=== PATIENT | male | born 1950 | race Caucasian/White ===

== ENCOUNTER 2024-03-20 10:01 | Inpatient (IN) | payer MEDICARE, SELFPAY ==
[2024-03-20] VITALS (46 sets, daily range): BP systolic 115–187; BP diastolic 48–76; PULSE 70–105; RESP 13–28; TEMP 36.9–38.1; O2SAT 69–100
--- NOTE | 2024-03-20 11:28 | XR_ITS ---
Examination: AP chest single view Technique one AP portable upright chest single view Exam date and time: March 20, 2024 at 12:36 PM Comparison June 05, 2023 Indications: Shortness of breath chest pain today Findings: CABG Mild to moderate CHF Moderate enlargement cardiac contour Prominent vascular congestion including central vascular engorgement Perihilar basilar edema Prominent osteopenia Impression: Mild to moderate CHF
--- NOTE | 2024-03-20 11:30 | PD.EDSOB ---
ED SOB =RME/HPI General Chief Complaint: Weakness Stated Complaint: WEAKNESS Time Seen by Provider: 03/20/24 11:10 Arrival date/time: 03/20/24 10:01 This is a 73-year-old male that comes to the emergency room with complaints of shortness of breath, generalized weakness, and back pain. Patient currently lives at [facility]. Patient has a history of A-fib with RVR , open heart surgery, morbid obesity, hyperlipidemia, CAD status post stents, history of DVT, depression. Patient arrives to the emergency room with low-grade temp Related Data Home Medications ?Medication ?Instructions ?Recorded ?Confirmed venlafaxine 75 mg capsule,extended 75 mg PO QDAY 05/16/17 03/21/24 release 24 hr (Effexor XR) apixaban 2.5 mg tablet (Eliquis) 2.5 mg PO BID 09/17/19 03/21/24 hydrocodone 5 mg-acetaminophen 325 1 tab PO Q6H PRN Pain, Moderate 09/17/19 03/21/24 mg tablet furosemide 40 mg tablet 40 mg PO QDAY 07/29/22 03/21/24 gabapentin 300 mg capsule 300 mg PO TID 07/29/22 03/21/24 pravastatin 40 mg tablet 40 mg PO QDAY 07/29/22 03/21/24 Allergies Allergy/AdvReac Type Severity Reaction Status Date / Time bee venom protein (honey bee) Allergy Swelling Verified 03/29/23 16:38 of Lip/Tongue/Throat Review of Systems Review of Systems Systems Reviewed: All systems reviewed, normal except as documented Past Medical History Past Medical History NEUROLOGIC: Negative Neurological Disorders or Seizures CARDIAC: Positive Cardiac Disorders, Myocardial Infarction, Atrial Fibrillation, Angina, Atherosclerotic Heart Disease, Hypercholesterolemia, Aneurysm, Edema, Deep Vein Thrombosis and Hypertension; Negative Congestive Heart Failure RESPIRATORY: Negative Chronic Obstructive Pulmonary Disease (COPD) or Asthma GASTROINTESTINAL: Negative Gastrointestinal Disorders GENITOURINARY: Positive Genitourinary Disorders and Kidney Stones; Negative Renal Disease MUSCULOSKELETAL: Positive Musculoskeletal Disorders and Arthritis ENT: Positive Blind ENDOCRINE: Negative Endocrine Disorders, Diabetes Mellitus Type 1 or Diabetes Mellitus Type 2 HEMATOLOGIC: Negative Blood Disorders or Sickle Cell Disease PSYCHO/SOCIAL: Positive Depression and Anxiety OTHER HISTORY: Positive Hospitalization, Falls and Measles; Negative Shingles, Blood Transfusions, Anesthesia Reactions, Chemotherapy, Radiation Therapy, MRSA, Clostridium Difficile or Cancer Family History FAMILY HISTORY: Positive Family Cardiac Disorders Surgical History SURGICAL: Positive Cardiac Surgery, Coronary Artery Bypass Graft, Coronary Stent, Angiogram and Tonsillectomy Social History SMOKING STATUS: Never smoker SUBSTANCE USE: former substance user ED Exam General General appearance: Present alert and other (mild distress ) Head Head exam: Present atraumatic Eye Eye exam: Present normal appearance, PERRL and EOMI ENT ENT exam: Present normal exam, normal oropharynx and mucous membranes moist Neck Neck exam: Present normal inspection, full ROM and trachea midline Chest Chest inspection: Present normal inspection and symmetric chest wall rise Respiratory Respiratory exam: Present other (wheezing throughout ) Cardiovascular Cardiovascular exam: Present regular rate, normal rhythm and normal heart sounds Abdominal Exam Abdominal exam: Present soft Extremities Exam Extremities exam: Present other (pitting edema lower extremities ) Back Exam Back exam: Present normal inspection and full ROM Neurological Exam Neurological exam: Present alert, oriented X3 and other (gen weakness upper and lower extremities ) Psychiatric Psychiatric exam: Present normal affect and normal mood Skin Skin exam: Present warm, dry, intact and normal color Course Quality Measures none Orders Category Date Time Status Bedside COVID-19 Antigen Test NOW Care 03/20/24 11:28 Completed Bedside Influenza A&B Antigen Test NOW Care 03/20/24 11:29 Completed COVID-19 Screening Questionnaire NOW Care 03/20/24 16:32 Completed Decision to Admit X1 Care 03/20/24 16:32 Completed EKG (ED ONLY) *Do not use* NOW Care 03/20/24 11:29 Completed IV [Insert IV] STAT Care 03/20/24 12:08 Completed In and Out Catheter X1 Care 03/20/24 11:[address] abdomen pelvis wo con Stat Exams 03/20/24 13:30 Completed EKG (ED Only) Stat Exams 03/20/24 11:28 Ordered XR chest 1V Stat Exams 03/20/24 11:28 Completed BNP [B-Type Natriuretic Peptide] Stat Lab 03/20/24 11:47 Completed Blood Culture (Lab) Stat Lab 03/20/24 11:40 Results CBC Stat Lab 03/20/24 11:47 Completed Comprehensive Metabolic Panel Stat Lab 03/20/24 11:47 Completed Lactate (Lactic Acid) Stat Lab 03/20/24 11:47 Completed Lactic Acid, 3 HR Stat Lab 03/20/24 15:34 Completed Procalcitonin Stat Lab 03/20/24 11:47 Completed Troponin I Stat Lab 03/20/24 11:47 Completed Urinalysis, C/S if Indicated Stat Lab 03/20/24 12:29 Completed Urine Culture Stat Lab 03/20/24 12:29 Received Acetaminophen Tab [Tylenol ES Tab] Med 03/20/24 11:30 Discontinued 1,000 mg PO X1 ONE Albuterol/Ipratr Rt Jeanie [Duoneb Rt Jeanie] Med 03/20/24 11:28 Discontinued 3 ml INH X1 ONE Oseltamivir [Tamiflu] Med 03/20/24 12:08 Discontinued 75 mg PO X1 ONE Sodium Chloride 0.9% 1000 ml [Ns] 1,000 ml Med 03/20/24 12:08 Discontinued IV 999 mls/hr cefTRIAXone/D5w 1gm IV premix [Rocephin/D5w 1gm IV Med 03/20/24 13:33 Discontinued premix] 50 ml IV X1 Vital Signs Vital signs: Vital Signs Temperature 100.6 F H 03/20/24 10:07 Pulse Rate 90 03/20/24 10:07 Respiratory Rate 23 H 03/20/24 10:07 Blood Pressure 187/71 H 03/20/24 10:07 Pulse Oximetry (%) 93 L 03/20/24 10:07 Oxygen Delivery Method Nasal Cannula 03/20/24 10:07 Oxygen Flow Rate 3 03/20/24 10:07 Procedures -ED EKG Interpretation #1: Date of EK03/20/24 Time of EK:09 Rate: 86 Interpretation: Interpreted by me (Atrial fibrillation with left posterior fascicular block) EKG Impression: Atrial fibrillation Shortness of Breath / Dyspnea MDM Narrative MDM Narrative:: Chest x ray shows: Findings: CABG Mild to moderate CHF Moderate enlargement cardiac contour Prominent vascular congestion including central vascular engorgement Perihilar basilar edema Prominent osteopenia Impression: Mild to moderate CHF ct abdomen and pelvis: Findings: Pneumonia left base with small left pleural effusion Prominent vascular congestion Moderate enlargement cardiac contour No focal liver or splenic lesions No gallstones Atrophic pancreas No adrenal mass Atrophic kidneys with renal cortical thinning and moderate renal parenchymal scar formation Large staghorn calculus, at least 6 cm, right kidney extending into the renal pelvis without hydronephrosis Multiple left renal calculi, the largest in the lower pole 15 mm Infrarenal abdominal aortic aneurysm, AP dimension 6.3 cm mediolateral dimension 5.9 cm cephalad caudad dimension 7.8 cm No bowel obstruction No pericecal inflammatory change No diverticulitis No bladder calculi Normal seminal vesicles No prostatomegaly Prominent osteopenia Moderate to advanced narrowing hip joints Impression: Pneumonia left base with small left pleural effusion Atrophic kidneys with renal cortical thinning and moderate bilateral renal parenchymal scar formation Extensive bilateral renal calculi including large staghorn calculus right kidney involving calyces and right renal pelvis No significant hydronephrosis Infrarenal abdominal aortic aneurysm transverse measurement 6.3 x 5.9 cm compared to 6.2 x 5.[address] abdomen study June 05, 2023 Patient was positive for influenza A. Upon arrival patient was wheezing so I gave him a breathing treatment of albuterol and Atrovent. Patient does report history of smoking in the past but has not smoked in many years. Patient's labs show white count of 9.7, hemoglobin of 11.1 hematocrit of 35.7, BMP shows a creatinine of 1.6 and a BUN of 31, lactic acid shows 2.6, troponin is 0.033 BNP is 91, procalcitonin 0.23 Chest x-ray shows left lower lobe infiltrate. Patient was given Rocephin for pneumonia. Upon initial arrival was given Tylenol for the fever. Patient was on oxygen and given breathing treatment. Wheezing did improve with breathing treatment. Influenza came back positive for influenza A and was given Tamiflu. Because of history of CHF and edema to the lower extremities 1 L of fluid was given IV bolus for sepsis alert. Hospitalist team called to admit patient to the hospital. Patient data External records reviewed:: [facility] previous records Clinical information provided by:: patient Social determinants that could affect healthcare access:: none Patient has the following chronic illnesses:: The chart How is presenting disease/condition affected by chronic disease/condition?: exacerbated by Evaluation data The following diagnostics were reviewed and interpreted by me:: lab results, radiology exam(s) and EKG tracing(s) Lab and/or radiology exams considered but not ordered:: None Interpretation Summary: See note Medications / Prescriptions Medications or Prescriptions considered but not ordered:: None Medication administrations:: Medication Administration History Acetaminophen (Acetaminophen 325 Mg Tablet) 650 mg PO Q6H PRN PRN Reason: Fever >101.5 Stop: 04/19/24 17:07 Acetaminophen (Acetaminophen 325 Mg Tablet) 650 mg PO Q6H PRN PRN Reason: PAIN SCALE 1-3 (mild Stop: 04/19/24 17:07 Hydrocodone Bitart/Acetaminophen (Hydrocodone/Apap 5/325 Tablet) 1 tab PO Q6HR PRN PRN Reason: Pain 4-10 Stop: 03/25/24 17:21 Last Admin: 03/21/24 21:44 Dose: 1 tab Documented By: Admin: 03/21/24 05:19 Dose: 1 tab Documented By: Admin: 03/20/24 20:44 Dose: 1 tab Documented By: ISATU Albuterol/Ipratropium (Albuterol/Ipratropium (Duoneb) Rt Jeanie 3 Ml Nebu) 3 ml INH Q6H ADRIAN Stop: 04/19/24 17:29 Last Admin: 03/22/24 00:26 Dose: 3 ml Documented By: Admin: 03/21/24 19:00 Dose: 3 ml Documented By: Admin: 03/21/24 11:58 Dose: 3 ml Documented By: Admin: 03/21/24 05:57 Dose: 3 ml Documented By: Admin: 03/21/24 00:08 Dose: 3 ml Documented By: Admin: 03/20/24 18:05 Dose: 3 ml Documented By: MELISSA Apixaban (Apixaban 2.5 Mg Tablet) 2.5 mg PO BID [facility] Stop: 04/19/24 20:59 Last Admin: 03/21/24 21:44 Dose: 2.5 mg Documented By: Admin: 03/21/24 09:27 Dose: 2.5 mg Documented By: Admin: 03/20/24 20:36 Dose: 2.5 mg Documented By: ISATU Atorvastatin Calcium (Atorvastatin Calcium 10 Mg Tablet) 10 mg PO [facility] Stop: 04/19/24 20:59 Last Admin: 03/21/24 21:44 Dose: 10 mg Documented By: Admin: 03/20/24 23:09 Dose: 10 mg Documented By: SIA Azithromycin (Azithromycin 250 Mg Tablet) 250 mg PO QDAY [facility] Stop: 03/25/24 06:00 Last Admin: 03/21/24 09:28 Dose: 250 mg Documented By: NATALIA Furosemide (Furosemide Inj 10 Mg/Ml 4ml Vial) 40 mg IVP [facility] Stop: 04/19/24 20:59 Last Admin: 03/21/24 21:42 Dose: 40 mg Documented By: Admin: 03/20/24 20:35 Dose: 40 mg Documented By: ISATU Gabapentin (Gabapentin 300 Mg Capsule) 300 mg PO TID ADRIAN Stop: 04/19/24 21:59 Last Admin: 03/21/24 21:44 Dose: 300 mg Documented By: Admin: 03/21/24 14:57 Dose: 300 mg Documented By: Admin: 03/21/24 05:19 Dose: 300 mg Documented By: Admin: 03/20/24 23:09 Dose: 300 mg Documented By: SIA Ceftriaxone Sodium/Dextrose (Rocephin/D5w 1gm Iv Premix) 50 mls @ 100 mls/hr IV QDAY ADRIAN Stop: 03/28/24 08:59 Last Admin: 03/21/24 09:27 Dose: 100 mls/hr Documented By: NATALIA Lactulose (Lactulose Syrup 20 Gm/30 Ml Udc) 20 gm PO QDAY PRN; Protocol PRN Reason: CONSTIPATION Stop: 04/20/24 08:59 Lisinopril (Lisinopril 2.5 Mg Tablet) 10 mg PO QDAY ADRIAN Stop: 04/20/24 08:29 Last Admin: 03/21/24 09:27 Dose: 10 mg Documented By: NATALIA Oseltamivir Phosphate (Oseltamivir 75 Mg Capsule) 75 mg PO BID ADRINA Stop: 03/25/24 09:01 Last Admin: 03/21/24 21:44 Dose: 75 mg Documented By: Admin: 03/21/24 09:27 Dose: 75 mg Documented By: Admin: 03/20/24 20:36 Dose: 75 mg Documented By: ISATU Venlafaxine HCl (Venlafaxine Xr 37.5 Mg Capcr) 37.5 mg PO QDAY ADRIAN Stop: 04/20/24 08:59 Last Admin: 03/21/24 09:27 Dose: 37.5 mg Documented By: NATALIA Discontinued Medications Acetaminophen (Acetaminophen 500 Mg Tablet) 1,000 mg PO X1 ONE Stop: 03/20/24 11:31 Last Admin: 03/20/24 12:25 Dose: 1,000 mg Documented By: JEROME Albuterol/Ipratropium (Albuterol/Ipratropium (Duoneb) Rt Jeanie 3 Ml Nebu) 3 ml INH X1 ONE Stop: 03/20/24 11:29 Last Admin: 03/20/24 11:42 Dose: 3 ml Documented By: LORENZO Azithromycin (Azithromycin 250 Mg Tablet) 500 mg PO X1 ONE Stop: 03/20/24 20:45 Last Admin: 03/20/24 23:09 Dose: 500 mg Documented By: SIA Sodium Chloride (Ns) 1,000 mls @ 999 mls/hr IV .Q1H1M ONE Stop: 03/20/24 13:08 Last Infusion: 03/20/24 16:04 Dose: Infused Documented By: Admin: 03/20/24 13:06 Dose: 999 mls/hr Documented By: VG Ceftriaxone Sodium/Dextrose (Rocephin/D5w 1gm Iv Premix) 50 mls @ 100 mls/hr IV X1 ONE Stop: 03/20/24 14:02 Last Infusion: 03/20/24 14:50 Dose: Infused Documented By: Admin: 03/20/24 14:09 Dose: 100 mls/hr Documented By: JEROME Oseltamivir Phosphate (Oseltamivir 75 Mg Capsule) 75 mg PO X1 ONE Stop: 03/20/24 12:09 Last Admin: 03/20/24 12:55 Dose: 75 mg Documented By: JEROME Sodium Chloride (Sodium Chloride Rt 10% 15 Ml Nebu) 5 ml INH X1 ONE Stop: 03/20/24 17:06 See [facility] Consultations Consultation(s) initiated? (list below): No Diagnosis Shortness of Breath Differential Diagnosis: acute exacerbation of chronic obstructive airways disease, congestive heart failure, community acquired pneumonia and other (Influenza, kidney stones) Most likely diagnosis given after review of the tests above:: influenza Admission Indicated Admission indicated?: indicated Admission Request Was there a request for admission?: Yes Admission Attestation Admission request attestation: Discussed case with Hospitalist service regarding admission. Discussed patients ED course, exam findings, labs, and radiology results. The Hospitalist [agrees, to accept the patient for admission. Disposition Plan Disposition Plan: Admit Discharge Plan Plan Patient Disposition: Admit Acute Care w/in Hospital Patient condition on transfer: Stable Problem List Clinical Impression: Influenza A
[2024-03-20] MEDS: ALBUTEROL/IPRATROPIUM (Duoneb) RT SOL 3 ML NEBU INH ×2 (11:42→18:05)
[2024-03-20 11:53] LABS: Lactate (Lactic Acid) 2.6 mMol/L (0.4-2.0)
[2024-03-20 12:04] LABS: Basophils % (Auto) 0 % (0-2.5); Eosinophils % (Auto) 0 % (0-10); Hematocrit 35.7 % (41.0-53.0); Hemoglobin 11.1 g/dL (13.5-16.0); Immature Granulocytes % (Auto) 1 % (0-0); Immature Granulocytes Auto 0.05 Thou/mm3 (0.00-0.00); Lymphocytes # (Auto) 0.4 Thou/mm3 (1.0-4.8); Lymphocytes % (Auto) 4 % (10-50); Mean Corpuscular HGB Conc 31.1 g/dl (31.0-37.0); Mean Corpuscular Hemoglobin 29.8 pg (25.0-35.0); Mean Corpuscular Volume 96 fL (80-100); Monocytes # (Auto) 0.8 Thou/mm3 (0.0-0.8); Monocytes % (Auto) 8 % (0-12); Neutrophils # (Auto) 8.5 Thou/mm3 (1.8-7.7); Neutrophils % (Auto) 88 % (37-80); Nucleated Red Blood Cell % 0 /100 WBC (0); Platelet Count 210 Thou/mm3 (140-440); Red Blood Count 3.73 Miln/mm3 (4.50-5.90); White Blood Count 9.7 Thou/mm3 (3.8-10.6)
[2024-03-20 12:20] LABS: Alanine Aminotransferase 13 U/L (10-49); Albumin/Globulin Ratio 1.3 (1.2-2.2); Alkaline Phosphatase 70 U/L (46-116); Anion Gap 8 (7-16); Aspartate Amino Transferase 19 U/L (0-34); BUN/Creatinine Ratio 19 Ratio (12-20); Bilirubin,Total 0.5 mg/dL (0.3-1.2); Blood Urea Nitrogen 31 mg/dL (9-23); Calcium 9.6 mg/dL (8.3-10.6); Calcium (Corrected) 9.6 mg/dL (8.5-10.1); Carbon Dioxide 33.5 mMol/L (20.0-31.0); Chloride 98 mMol/L (98-107); Creatinine (Component) 1.6 mg/dL (0.6-1.3); Globulin 3.1 gm/dL (2.3-3.5); Glucose 158 mg/dL (74-106); Osmolality,Calculated 287 (275-295); Potassium 4.6 mMol/L (3.4-5.1); Procalcitonin 0.23 ng/ml (0.0-0.49); Sodium 139 mMol/L (136-145); Total Protein 7.1 gm/dL (5.7-8.2); Troponin I 0.033 ng/mL (0.0-0.045); eGFR 45 See Note
[2024-03-20] MEDS: ACETAMINOPHEN 500 MG TABLET 1000 MG PO (12:25)
[2024-03-20 12:36] LABS: Collection Type, Urine Catheter
[2024-03-20 12:49] LABS: B-Type Natriuretic Peptide 91 pg/mL (0-100)
[2024-03-20] MEDS: OSELTAMIVIR 75 MG CAPSULE PO ×2 (12:55→20:36)
[2024-03-20] MEDS: SODIUM CHLORIDE 0.9% 1000 ML 1,000 ML 999 ML IV (13:06)
[2024-03-20 13:12] LABS: Bacteria,Urine Rare; Bilirubin,Urine Negative (Negative); Blood,Urine 2+ (Negative); Clarity,Urine Turbid (Clear/Hazy); Color,Urine Yellow (Lt Yel-Yel); Glucose, Urine Negative (Negative); Ketones,Urine Negative (Negative); Leukocyte Esterase,Urine Positive (Negative); Nitrite,Urine Negative (Negative); Protein,Urine 1+ (Neg - Trace); RBC,Urine 118 /hpf (0-3); Specific Gravity,Urine 1.019 (1.001-1.035); Squamous Epithelial Cell,Urine 3 /hpf (0-5); Urobilinogen,Urine Negative mg/dL (0.0-1.0); WBC,Urine 79 /hpf (0-5)
[2024-03-20 13:14] LABS: Culture Indicated,Urine Yes
--- NOTE | 2024-03-20 13:30 | XR_ITS ---
Examination: CT abdomen and pelvis without contrast. Coronal 3-D reconstructions. Sagittal 2-D reconstructions. Date and time of exam:March 20, 2024 1345 hrs. Comparison June 05, 2023 Indications: Onset flank pain beginning 2 days ago, history kidney stones CTDI: vol (mGy): 26 DLP: (mGycm): 1559 Technique: Axial images of the abdomen have been obtained, 3 mm slice thickness Intravenous contrast material has not been administered. Low dose protocols were performed. One or more of the following dose reduction techniques were used; automated exposure control, adjustment of the mA and/or KV according to patient size, use of iterative reconstruction technique. Findings: Pneumonia left base with small left pleural effusion Prominent vascular congestion Moderate enlargement cardiac contour No focal liver or splenic lesions No gallstones Atrophic pancreas No adrenal mass Atrophic kidneys with renal cortical thinning and moderate renal parenchymal scar formation Large staghorn calculus, at least 6 cm, right kidney extending into the renal pelvis without hydronephrosis Multiple left renal calculi, the largest in the lower pole 15 mm Infrarenal abdominal aortic aneurysm, AP dimension 6.3 cm mediolateral dimension 5.9 cm cephalad caudad dimension 7.8 cm No bowel obstruction No pericecal inflammatory change No diverticulitis No bladder calculi Normal seminal vesicles No prostatomegaly Prominent osteopenia Moderate to advanced narrowing hip joints Impression: Pneumonia left base with small left pleural effusion Atrophic kidneys with renal cortical thinning and moderate bilateral renal parenchymal scar formation Extensive bilateral renal calculi including large staghorn calculus right kidney involving calyces and right renal pelvis No significant hydronephrosis Infrarenal abdominal aortic aneurysm transverse measurement 6.3 x 5.9 cm compared to 6.2 x 5.[address] abdomen study June 05, 2023
[2024-03-20] MEDS: cefTRIAXone/D5w 1gm IV premix 50 ML IV (14:09)
[2024-03-20 14:51] LABS: Reflex Lactate? Y
[2024-03-20 15:55] LABS: Lactic Acid, 3 HR 1.6 mMol/L (0.4-2.0)
--- NOTE | 2024-03-20 16:01 | PRELIM_ITS ---
CT scan of the abdomen and pelvis without intravenous contrast (axial sections with sagittal and teena nal reformats) March 20, 2024 1345 hours Clinical History: kidney stones Findings:The evaluation i s limited by respiratory motion. There is small to moderate left pleural effusion, with underlying at electasis.The pancreas is mildly atrophic. There is a 6.3 x 4.5 cm nonobstructing staghorn calculus i n the right kidney. There are nonobstructing left renal calculi. There is no ureteric calculus or hyd roureteronephrosis. Both kidneys are mildly atrophic. The liver, gallbladder, spleen and adrenals are unremarkable on this noncontrast study.No evidence of bowel obstruction. The appendix is not visuali zed. There is no mesenteric or retroperitoneal adenopathy. There is a fusiform aneurysm of the infra renal abdominal aorta, measuring up to 6 cm in maximum diameter. 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 There is no free fluid or free air.The bones are osteopenic. Mild degenerative changes are identified in the spine. Median sternotomy wires are identified. Impression:1. Limited evaluation as described. 2. Non-obstructing bilateral renal calculi, with a staghorn calculus in the right kidn ey.3. No ureteric calculus or hydroureteronephrosis. 4. 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 Other findings as described above. Report Electronically Si gned By: Everette Grullon 03/20/2024 4:01:01 PM [EST]
--- NOTE | 2024-03-20 17:13 | ECHO_ITS ---
Transthoracic Echo Report Ht (in): 72 Wt (lb): 290 Exam Location: Portable Status: Emergency Condenser Tester: Joanie Umaña Indications: Procedure Performed: BP: 161 / 74 HR: 73 Rhythm: Atrial fibrillation Technical Quality: Technically difficult study MEASUREMENTS (Male / Female) Normal Values 2D ECHO LV Diastolic Diameter PLAX 5.1 cm 4.2 - 5.9 / 3.9 - 5.3 cm LV Systolic Diameter PLAX 3.5 cm IVS Diastolic Thickness 1.3 cm 0.6 - 1.0 / 0.6 - 0.9 cm LVPW Diastolic Thickness 1.4 cm 0.6 - 1.0 / 0.6 - 0.9 cm LV Relative Wall Thickness 0.5 LVOT Diameter 1.7 cm LA Volume Index 45.3 cm?/m? 16 - 28 cm?/m? Ascending Aorta Diameter 3.6 cm M-MODE Aortic Root Diameter MM 3.2 cm LA Systolic Diameter MM 5.2 cm LA Ao Ratio MM 1.6 AV Cusp Separation MM 2.2 cm DOPPLER AV Peak Velocity 164.0 cm/s AV Peak Gradient 10.8 mmHg AV Mean Gradient 5.0 mmHg AV Velocity Time Integral 28.8 cm LVOT Peak Velocity 107.0 cm/s LVOT Peak Gradient 4.6 mmHg LVOT Velocity Time Integral 19.1 cm LVOT Cardiac Index 1199.5 cm?/min?m? AV Area Cont Eq vti 1.5 cm? AV Area Cont Eq pk 1.5 cm? MV Peak Velocity 202.7 cm/s MV Peak Gradient 16.4 mmHg MV Mean Velocity 113.7 cm/s MV Mean Gradient 6.7 mmHg MV Area PHT 3.3 cm? MR Peak Velocity 537.5 cm/s MR Peak Gradient 115.6 mmHg Mitral E Point Velocity 138.0 cm/s Mitral A Point Velocity 1.9 cm/s Mitral E to A Ratio 71.5 LV E' Lateral Velocity 9.8 cm/s Mitral E to LV E' Lateral Ratio 14.1 LV E' Septal Velocity 8.5 cm/s Mitral E to LV E' Septal Ratio 16.3 TR Peak Velocity 240.0 cm/s TR Peak Gradient 23.0 mmHg FINDINGS Left Ventricle Normal left ventricular size, systolic function with no obvious regional wall motion abnormalities. Mild LVH. The ejection fraction is visually estimated at 60-65%. Right Ventricle The right ventricle is mildly dilated. Normal systolic function. The estimated right ventricular sys tolic pressure, 28 mmHg. RAP 5. Left Atrium The left atrium is moderately dilated. Right Atrium The right atrium is normal by two-dimensional imaging, color flow and Doppler imaging with no struct ural abnormalities, no thrombus formation present. Atrial Septum The interatrial septum appears normal with no evidence of a shunt. Aorta The ascending aorta is mildly dilated. Mitral Valve The mitral valve is mildly MAC. There is moderate mitral valve regurgitation. Aortic Valve The aortic valve is trileaflet. Mild sclerosis without stenosis. There is no significant aortic valv e regurgitation. Tricuspid Valve The tricuspid valve is normal by two-dimensional, color flow and Doppler interrogation. There is mil d tricuspid valve regurgitation. Pulmonic Valve There is no significant pulmonic valve regurgitation. Vessels The pulmonary artery appears normal. The inferior vena cava pulmonary and hepatic veins appear hector l. Pericardium The pericardium is normal by two-dimensional imaging. There is no significant pericardial effusion. CONCLUSIONS Normal LV size and function. Mild LVH. Estimated EF 60-65% Mild RV dilatation. Normal RV function. Moderate LA dilatation.The ascending aorta is mildly dilated. Mild MAC. Moderate MR. Mild TR Mild AV sclerosis without stenosis. Bibi Caballero (Electronically Signed) Final Date: 23 March 2024 15:21
--- NOTE | 2024-03-20 17:37 | PD.RESHP ---
Documentation for date of: 03/20/24 HPI History of Present Illness History of present illness: The patient is a 73-year-old male with significant past medical history of A-fib on Eliquis, hyperlipidemia, coronary artery disease s/p stent placement and cardiac bypass grafting, history of DVT, possible CHF, morbid obesity, recurrent UTIs with urinary overflow incontinence and bedbound presented with severe ability facility with chief complaint of SOB, generalized weakness and back pain. The patient is also occasionally on home O2. Patient denied any lightheadedness, chest pain, abdominal pain, any changes in bowel habit, but admitted bilateral lower limb swelling. He denied any nausea or vomiting. In the ED his vitals were significant for blood pressure of 187/71, RR 23, temperature 100.6 and pulse rate 90 meeting 2-3/4 SIRS criteria. Labs are significant for hemoglobin 11.1, bicarb 33.5, BUN 31, creatinine 1.6, EGFR 45, blood sugar 158, UA positive for turbid urine, 1+ protein, 2+ blood, leukocyte esterase, RBC 118, WBC 79 with rare bacteria. Positive for influenza B pneumonia. CXR was significant for mild to moderate CHF and abdomen/pelvis CT was significant for pneumonia and left base with small left pleural effusion, atrophic kidneys with renal cortical thinning and moderate bilateral renal parenchymal eschar formation, extensive bilateral renal calculi including large staghorn calculus right kidney involving calyces and right renal pelvis, no significant hydronephrosis with infrarenal abdominal aortic aneurysm transverse measurement 6.3 x 5.9 cm compared to 6.2 x 5.[address] abdomen from June 05, 2023. PMH: As mentioned above PSHx: Open heart surgery for cardiac bypass grafting Social history: Denies any alcohol, tobacco or illicit drug use Allergies: No known allergies Medications: To be reconciled The patient received 1 L IV normal saline, Tamiflu 75 Mg and ceftriaxone 1 g and was admitted to telemetry unit for further management of acute hypoxic respiratory failure secondary to influenza B pneumonia and CHF exacerbation. Review of Systems Review of Systems Systems Reviewed: All systems reviewed, normal except as documented Exam Vital Signs Temp Pulse Resp BP Pulse Ox O2 Del Method O2 Flow Rate 98.8 F 78 18 146/74 H 98 Room Air 3 03/20/24 15:33 03/20/24 15:33 03/20/24 15:33 03/20/24 15:33 03/20/24 15:33 03/20/24 15:33 03/20/24 11:46 Narrative Exam General: Morbidly obese gentleman, No acute distress, Alert and Oriented x 3 HEENT: Moist mucous membranes, oropharynx clear Neck: Supple, No masses, No JVD CVS: S1S2 Regular rate and rhythm, No murmurs, rubs or gallops Lungs: Bilateral wheeze and rhonchi present throughout the lung field, difficult to assess any crackles due to body habitus Abd: Soft, NT/ND, +BS, no organomegaly Ext: 2+ bilateral below-knee pitting edema, warm and well perfused Skin: No rash Psych: Appropriate mood and affect Results: Labs 03/25/24 05:02 03/25/24 05:02 Labs: Short CBC 03/20/24 Range/Units 11:47 WBC 9.7 (3.8-10.6) Thou/mm3 Hgb 11.1 L (13.5-16.0) g/dL Hct 35.7 L (41.0-53.0) % Plt Count 210 (140-440) Thou/mm3 BMP 03/20/24 11:47 Sodium 139 Potassium 4.6 Chloride 98 Carbon Dioxide 33.5 H BUN 31 H Creatinine 1.6 H Glucose 158 H Calcium 9.6 Cardiac Enzymes 03/20/24 Range/Units 11:47 Troponin I 0.033 (0.0-0.045) ng/mL Liver Function 03/20/24 Range/Units 11:47 Total Bilirubin 0.5 (0.3-1.2) mg/dL AST 19 (0-34) U/L ALT 13 (10-49) U/L Alkaline Phosphatase 70 (46-116) U/L Albumin 4.0 (3.4-4.8) gm/dL Urine 03/20/24 Range/Units 12:29 Urine Color Yellow (Lt Yel-Yel) Urine Clarity Turbid A (Clear/Hazy) Urine pH 6.0 (5.0-7.0) Ur Specific Boley 1.019 (1.001-1.035) Urine Protein 1+ A (Neg - Trace) Urine Glucose (UA) Negative (Negative) Quality Measures Quality Measures VTE prophylaxis Advance care planning discussed with:: patient Medications Home Medications and Allergies Home Medications ?Medication ?Instructions ?Recorded ?Confirmed ?Type venlafaxine 75 mg capsule,extended 75 mg PO QDAY 05/16/17 03/21/24 History release 24 hr (Effexor XR) apixaban 2.5 mg tablet (Eliquis) 2.5 mg PO BID 09/17/19 03/21/24 History hydrocodone 5 mg-acetaminophen 325 1 tab PO Q6H PRN Pain, Moderate 09/17/19 03/21/24 History mg tablet gabapentin 300 mg capsule 300 mg PO TID 07/29/22 03/21/24 History pravastatin 40 mg tablet 40 mg PO QDAY 07/29/22 03/21/24 History Allergies Allergy/AdvReac Type Severity Reaction Status Date / Time bee venom protein (honey bee) Allergy Swelling Verified 03/29/23 16:38 of Lip/Tongue/Throat Visit Medications Acetaminophen (Acetaminophen 325 Mg Tablet) 650 mg PO Q6H PRN PRN Reason: Fever >101.5 Stop: 04/19/24 17:07 Acetaminophen (Acetaminophen 325 Mg Tablet) 650 mg PO Q6H PRN PRN Reason: PAIN SCALE 1-3 (mild Stop: 04/19/24 17:07 Hydrocodone Bitart/Acetaminophen (Hydrocodone/Apap 5/325 Tablet) 1 tab PO Q6HR PRN PRN Reason: Pain 4-10 Stop: 03/25/24 17:21 Albuterol/Ipratropium (Albuterol/Ipratropium (Duoneb) Rt Jeanie 3 Ml Nebu) 3 ml INH Q6H ADRIAN Stop: 04/19/24 17:29 Apixaban (Apixaban 2.5 Mg Tablet) 2.5 mg PO BID ADRIAN Stop: 04/19/24 20:59 Atorvastatin Calcium (Atorvastatin Calcium 10 Mg Tablet) 10 mg PO HS ADRIAN Stop: 04/19/24 20:59 Azithromycin (Azithromycin 250 Mg Tablet) 250 mg PO QDAY ADRIAN Stop: 03/25/24 06:00 Furosemide (Furosemide Inj 10 Mg/Ml 4ml Vial) 40 mg IVP HS ADRIAN Stop: 04/19/24 20:59 Gabapentin (Gabapentin 300 Mg Capsule) 300 mg PO TID ADRIAN Stop: 04/19/24 21:59 Ceftriaxone Sodium/Dextrose (Rocephin/D5w 1gm Iv Premix) 50 mls @ 100 mls/hr IV QDAY ADRIAN Stop: 03/28/24 08:59 Lactulose (Lactulose Syrup 20 Gm/30 Ml Udc) 20 gm PO QDAY PRN; Protocol PRN Reason: CONSTIPATION Stop: 04/20/24 08:59 Oseltamivir Phosphate (Oseltamivir 75 Mg Capsule) 75 mg PO BID ADRIAN Stop: 03/25/24 09:01 Venlafaxine HCl (Venlafaxine Xr 37.5 Mg Capcr) 37.5 mg PO QDAY ADRIAN Stop: 04/20/24 08:59 Discontinued Medications Acetaminophen (Acetaminophen 500 Mg Tablet) 1,000 mg PO X1 ONE Stop: 03/20/24 11:31 Last Admin: 03/20/24 12:25 Dose: 1,000 mg Albuterol/Ipratropium (Albuterol/Ipratropium (Duoneb) Rt Jeanie 3 Ml Nebu) 3 ml INH X1 ONE Stop: 03/20/24 11:29 Last Admin: 03/20/24 11:42 Dose: 3 ml Sodium Chloride (Ns) 1,000 mls @ 999 mls/hr IV .Q1H1M ONE Stop: 03/20/24 13:08 Last Infusion: 03/20/24 16:04 Dose: Infused Ceftriaxone Sodium/Dextrose (Rocephin/D5w 1gm Iv Premix) 50 mls @ 100 mls/hr IV X1 ONE Stop: 03/20/24 14:02 Last Infusion: 03/20/24 14:50 Dose: Infused Oseltamivir Phosphate (Oseltamivir 75 Mg Capsule) 75 mg PO X1 ONE Stop: 03/20/24 12:09 Last Admin: 03/20/24 12:55 Dose: 75 mg Sodium Chloride (Sodium Chloride Rt 10% 15 Ml Nebu) 5 ml INH X1 ONE Stop: 03/20/24 17:06 Assessment & Plan Plan The patient is a 73-year-old male with significant past medical history of A-fib on Eliquis, hyperlipidemia, coronary artery disease s/p stent placement and cardiac bypass grafting, history of DVT, possible CHF, morbid obesity, recurrent UTIs with urinary overflow incontinence and bed bound [facility] with chief complaint of SOB, generalized weakness and back pain x 2-3 days. The patient received and was admitted to telemetry unit for further management of acute hypoxic respiratory failure secondary to influenza B pneumonia and CHF exacerbation. #Acute hypoxic respiratory failure 2/2 #Sepsis 2/2 #Influenza B pneumonia, and #CHF exacerbation Presented with chief complaint of SOB, generalized weakness and back pain, RR 23, temperature 100.6 and pulse rate 90 meeting 2-3/4 SIRS criteria, positive for Influenza B, requiring 3L NC, with CXR was significant for mild to moderate CHF, CT abd was significant for pneumonia and left base with small left pleural effusion -Received 1L IV normal saline, Tamiflu 75 Mg and ceftriaxone 1 g in the ED -Started on ceftriaxone and azithromycin daily -On tamiflu 75 mg BID -On IV lasix 40 daily -BCx, Urine Cx, sputum Cx, Nasal MRSA pending -Strict ins and outs -Fluid restriction 1500ml -daily am labs -TTE ordered #AARON Prerenal 2/2 renal congestion 2/2 CHF exacerbation Baseline Cr 1.2, presented with 1.6 -Lasix 40mg IV daily -Avoid nephrotoxins -INS/Outs -Daily am labs #Asymptomatic complicated UTI #BL renal calculi #Overflow incontinence UA positive for turbid urine, 1+ protein, 2+ blood, leukocyte esterase, RBC 118, WBC 79 with rare bacteria, atrophic kidneys with renal cortical thinning and moderate bilateral renal parenchymal eschar formation, extensive bilateral renal calculi including large staghorn calculus right kidney involving calyces and right renal pelvis, no significant hydronephrosis -On ceftriaxone in the setting of sepsis -Urine Cx ordered -F/u with urologist as outpatient for renal calculi #Anemia Likely ANIL vs Inflammatory anemia vs vit B12 Def vs folate def in the setting of poor nutrition -Iron panel, VIT B12, folate level ordered #Peripheral neuropathy -On gabapentine 300mg TID #Possible respiratory acidosis compensated by metabolic alkalosis 2/2 #Possible AURA, and #Possible OHS HCO3 33.5 -Continue to monitor BMP -CPAP at night -F/u outpatient for sleep study #Abdominal aortic aneurism CT abd/ pel: Infrarenal abdominal aortic aneurysm transverse measurement 6.3 x 5.9 cm compared to 6.2 x [address] abdomen from June 05, 2023. -F/u outpatient with vascular surgeon -Proper BP control #Afib -On eliquis 2.5mg BID #CAD #Hyperlipidemia s/p stent placement and cardiac bypass grafting On home parvastatin 40mg daily -Started on equivalent atorvastatin 10mg daily -Am lipid panel Health maintenance: Dispo: Admitted to [facility] for AHRF 2/2 Influenza B pneumonia and CHF exacerbation. Diet: Cardiac, fluid restriction 1500cc DVT prophylaxix: Eliquis 2.5mg BID CODE: FUll code The patient's management plan was discussed with my attending physician DO Jhony John MD, PGY2 Attending Provider Attestation/Addendum I have discussed and was present for the essential components of the history, physical examination, diagnosis, and treatment plan with the resident. I agree with the patient's care as documented by the resident and amended herein by me. Nasir Olea DO. Although this document has been carefully reviewed, there may still be some phonetic and other typographical errors. These errors are purely grammatical due to imperfections in the software program and should not be construed in any way to compromise the substance of the patient's medical care during this visit.
--- NOTE | 2024-03-20 18:14 | PC.SS ---
pt refused a sputum induction tx at this time unable to expectorate sputum.
[2024-03-20] MEDS: FUROSEMIDE INJ 10 MG/ML 4ML VIAL 40 MG IVP (20:35)
[2024-03-20] MEDS: APIXABAN 2.5 MG TABLET PO (20:36)
[2024-03-20] MEDS: HYDROcodone/APAP 5/325 TABLET 1 TAB PO (20:44)
[2024-03-20] MEDS: GABAPENTIN 300 MG CAPSULE PO (23:09)
[2024-03-20] MEDS: ATORVASTATIN CALCIUM 10 MG TABLET PO (23:09)
[2024-03-20] MEDS: AZITHROMYCIN 250 MG TABLET 500 MG PO (23:09)
[2024-03-21] VITALS (14 sets, daily range): BP systolic 118–161; BP diastolic 63–91; PULSE 65–116; RESP 16–28; TEMP 36.6–37.4; O2SAT 96–100
[2024-03-21] MEDS: ALBUTEROL/IPRATROPIUM (Duoneb) RT SOL 3 ML NEBU INH ×4 (00:08→19:00)
[2024-03-21] MEDS: GABAPENTIN 300 MG CAPSULE PO ×3 (05:19→21:44)
[2024-03-21] MEDS: HYDROcodone/APAP 5/325 TABLET 1 TAB PO ×2 (05:19→21:44)
[2024-03-21 05:57] LABS: Basophils % (Auto) 0 % (0-2.5); Eosinophils # (Auto) 0.1 Thou/mm3 (0.0-0.5); Eosinophils % (Auto) 2 % (0-10); Hematocrit 34.7 % (41.0-53.0); Hemoglobin 10.6 g/dL (13.5-16.0); Immature Granulocytes % (Auto) 1 % (0-0); Immature Granulocytes Auto 0.04 Thou/mm3 (0.00-0.00); Lymphocytes # (Auto) 0.4 Thou/mm3 (1.0-4.8); Lymphocytes % (Auto) 6 % (10-50); Mean Corpuscular HGB Conc 30.5 g/dl (31.0-37.0); Mean Corpuscular Hemoglobin 29.2 pg (25.0-35.0); Mean Corpuscular Volume 96 fL (80-100); Monocytes # (Auto) 0.6 Thou/mm3 (0.0-0.8); Monocytes % (Auto) 9 % (0-12); Neutrophils # (Auto) 6.2 Thou/mm3 (1.8-7.7); Neutrophils % (Auto) 84 % (37-80); Nucleated Red Blood Cell % 0 /100 WBC (0); Platelet Count 198 Thou/mm3 (140-440); RDW Standard Deviation 56.1 fL (35.1-43.9); Red Blood Count 3.63 Miln/mm3 (4.50-5.90); White Blood Count 7.4 Thou/mm3 (3.8-10.6)
[2024-03-21 06:22] LABS: Alanine Aminotransferase 13 U/L (10-49); Albumin, Serum 3.8 gm/dL (3.4-4.8); Albumin/Globulin Ratio 1.3 (1.2-2.2); Alkaline Phosphatase 63 U/L (46-116); Anion Gap 5 (7-16); Aspartate Amino Transferase 25 U/L (0-34); BUN/Creatinine Ratio 20 Ratio (12-20); Bilirubin,Total 0.4 mg/dL (0.3-1.2); Blood Urea Nitrogen 26 mg/dL (9-23); Calcium (Corrected) 9.2 mg/dL (8.5-10.1); Carbon Dioxide 35.1 mMol/L (20.0-31.0); Cardiac Risk Estimate 3.1 RATIO (4.0-6.7); Chloride 99 mMol/L (98-107); Cholesterol 143 mg/dL (132-200); Creatinine (Component) 1.3 mg/dL (0.6-1.3); Globulin 2.9 gm/dL (2.3-3.5); Glucose 119 mg/dL (74-106); HDL Cholesterol 46 mg/dL (40-60); LDL Cholesterol,Calculated 82 mg/dL (0-130); Osmolality,Calculated 283 (275-295); Phosphorous 3.7 mg/dL (2.4-5.1); Sodium 139 mMol/L (136-145); Thyroid Stimulating Hormone 0.14 uIU/mL (0.55-4.78); Total Protein 6.7 gm/dL (5.7-8.2); Triglycerides 77 mg/dL (30-150); eGFR 57 See Note
[2024-03-21 06:33] LABS: Iron 31 mcg/dL (65-175); Percent Iron Saturation 10 % (20-55); Total Iron Binding Capacity 290 mcg/dL (250-425); Unsaturated Iron Binding 259 (225-295)
[2024-03-21 09:05] LABS: Free T3 1.9 pg/mL (2.3-4.2); Free T4 (Free Thyroxine) 1.07 ng/dL (0.89-1.76)
[2024-03-21] MEDS: APIXABAN 2.5 MG TABLET PO ×2 (09:27→21:44)
[2024-03-21] MEDS: OSELTAMIVIR 75 MG CAPSULE PO ×2 (09:27→21:44)
[2024-03-21] MEDS: Lisinopril 2.5 MG TABLET 10 MG PO (09:27)
[2024-03-21] MEDS: cefTRIAXone/D5w 1gm IV premix 50 ML IV (09:27)
[2024-03-21] MEDS: VENLAFAXINE XR 37.5 MG CAPCR PO (09:27)
[2024-03-21] MEDS: AZITHROMYCIN 250 MG TABLET PO (09:28)
--- NOTE | 2024-03-21 15:20 | ESPR_ITS ---
Documentation for date of: 03/21/24 Subjective Subjective Interval history: Patient was examined bedside this morning, no acute overnight event patient is saturating well on 5 L of oxygen. Exam Vital Signs Temp Pulse Resp BP Pulse Ox O2 Del Method O2 Flow Rate 99.0 F 84 28 H 151/77 H 98 Room Air 5 03/21/24 12:00 03/21/24 12:00 03/21/24 12:00 03/21/24 12:00 03/21/24 12:00 03/21/24 12:00 03/21/24 11:58 Narrative Exam GENERAL: Comfortable adult seen resting comfortably in hospital bed, no acute distress,obede VITALS: All vitals were reviewed and the pulse ox is 98% on room air HEENT: Normocephalic, atraumatic. Pupils are equal and reactive. Oral mucosa is moist. NECK: Supple, nontender, no JVD CHEST: Symmetrical, atraumatic and with equal expansion ,Nontender on palpation CARDIOVASCULAR: Heart regular rhythm & rate. S1/S2. no murmur or gallop rub or extra beats. LUNGS: Bilateral wheezing no laboring tachypnea or wheezing. No intercostal subcostal retraction. No rales and no rhonchi. ABDOMEN: Soft, flat, nontender to palpation, no guarding or rebound tenderness. Active and normal bowel sounds. EXTREMITIES:Moves all 4 extremities,No B/L LE edema. SKIN: Warm and dry, no jaundice or rashes noted. NEURO: Patient is AO x 3, Cranial nerves II through XII grossly intact. There is no focal neurologic deficits noted. PSYCHIATRIC: Patient is in normal mood, cooperative, no SI or HI or hallucinations. Objective Labs 03/21/24 04:53 03/21/24 04:53 Labs: Laboratory Results - last 24 hr 03/20/24 03/21/24 15:34 04:53 WBC 7.4 RBC 3.63 L Hgb 10.6 L Hct 34.7 L MCV 96 MCH 29.2 MCHC 30.5 L RDW Std Deviation 56.1 H Plt Count 198 Neut % (Auto) 84 H Lymph % (Auto) 6 L Coffey % (Auto) 9 Eos % (Auto) 2 Baso % (Auto) 0 Neut # (Auto) 6.2 Lymph # (Auto) 0.4 L Coffey # (Auto) 0.6 Eos # (Auto) 0.1 Baso # (Auto) 0.0 Immature Gran # (Auto) 0.04 H Absolute Nucleated RBC 0.00 Immature Gran % 1 H Nucleated RBC % 0 Sodium 139 Potassium 4.0 D Chloride 99 Carbon Dioxide 35.1 H Anion Gap 5 L BUN 26 H Creatinine 1.3 Estim Creat Clear Calc Not Performed. eGFR 57 L BUN/Creatinine Ratio 20 Glucose 119 H Calculated Osmolality 283 Lactic Acid 1.6 Calcium 9.0 Corrected Calcium 9.2 Phosphorus 3.7 Magnesium 2.0 Iron 31 L TIBC 290 Iron Saturation 10 L Unsat Iron Binding 259 Total Bilirubin 0.4 AST 25 ALT 13 Alkaline Phosphatase 63 Total Protein 6.7 Albumin 3.8 Globulin 2.9 Albumin/Globulin Ratio 1.3 Triglycerides 77 Cholesterol 143 LDL Cholesterol, Calc 82 HDL Cholesterol 46 Cholesterol/HDL Ratio 3.1 L TSH 0.14 L Free T4 1.07 Free T3 pg/dL 1.9 L Quality Measures Quality Measures VTE prophylaxis Advance care planning discussed with:: patient Assessment & Plan Assessment Current Active Medications: Generic Name Dose Route Start Last Admin Trade Name Freq PRN Reason Stop Dose Admin Acetaminophen 650 mg 03/20/24 17:08 Acetaminophen 325 Mg Tablet PO 04/19/24 17:07 Q6H PRN Fever >101.5 Acetaminophen 650 mg 03/20/24 17:08 Acetaminophen 325 Mg Tablet PO 04/19/24 17:07 Q6H PRN PAIN SCALE 1-3 (mild Hydrocodone Bitart/Acetaminophen 1 tab 03/20/24 17:22 03/21/24 05:19 Hydrocodone/Apap 5/325 Tablet PO 03/25/24 17:21 1 tab Q6HR PRN Administration Pain 4-10 Albuterol/Ipratropium 3 ml 03/20/24 17:30 03/21/24 11:58 Albuterol/Ipratropium (Duoneb) Rt Jeanie 3 Ml Nebu INH 04/19/24 17:29 3 ml Q6H ADRIAN Administration Apixaban 2.5 mg 03/20/24 21:00 03/21/24 09:27 Apixaban 2.5 Mg Tablet PO 04/19/24 20:59 2.5 mg BID ADRIAN Administration Atorvastatin Calcium 10 mg 03/20/24 21:00 03/20/24 23:09 Atorvastatin Calcium 10 Mg Tablet PO 04/19/24 20:59 10 mg HS ADRIAN Administration Azithromycin 250 mg 03/21/24 09:00 03/21/24 09:28 Azithromycin 250 Mg Tablet PO 03/25/24 06:00 250 mg QDAY ADRIAN Administration Furosemide 40 mg 03/20/24 21:00 03/20/24 20:35 Furosemide Inj 10 Mg/Ml 4ml Vial IVP 04/19/24 20:59 40 mg HS ADRIAN Administration Gabapentin 300 mg 03/20/24 22:00 03/21/24 14:57 Gabapentin 300 Mg Capsule PO 04/19/24 21:59 300 mg TID ADRIAN Administration Ceftriaxone Sodium/Dextrose 50 mls @ 100 mls/hr 03/21/24 09:00 03/21/24 09:27 Rocephin/D5w 1gm Iv Premix IV 03/28/24 08:59 100 mls/hr QDAY ADRIAN Administration Lactulose 20 gm 03/20/24 17:08 Lactulose Syrup 20 Gm/30 Ml Udc PO 04/20/24 08:59 QDAY PRN CONSTIPATION Protocol Lisinopril 10 mg 03/21/24 08:30 03/21/24 09:27 Lisinopril 2.5 Mg Tablet PO 04/20/24 08:29 10 mg QDAY ADRIAN Administration Oseltamivir Phosphate 75 mg 03/20/24 21:00 03/21/24 09:27 Oseltamivir 75 Mg Capsule PO 03/25/24 09:01 75 mg BID ADRIAN Administration Venlafaxine HCl 37.5 mg 03/21/24 09:00 03/21/24 09:27 Venlafaxine Xr 37.5 Mg Capcr PO 04/20/24 08:59 37.5 mg QDAY ADRIAN Administration Plan The patient is a 73-year-old male with significant past medical history of A-fib on Eliquis, hyperlipidemia, coronary artery disease s/p stent placement and cardiac bypass grafting, history of DVT, possible CHF, morbid obesity, recurrent UTIs with urinary overflow incontinence and bed bound [facility] with chief complaint of SOB, generalized weakness and back pain x 2-3 days. The patient received and was admitted to telemetry unit for further management of acute hypoxic respiratory failure secondary to influenza B pneumonia and CHF exacerbation. #Acute hypoxic respiratory failure 2/2- improving #Sepsis 2/2 #Influenza B pneumonia, and #CHF exacerbation -Presented with chief complaint of SOB, generalized weakness and back pain, RR 23, temperature 100.6 and pulse rate 90 meeting 2-3/4 SIRS criteria, positive for Influenza B, requiring 3L NC, with CXR was significant for mild to moderate CHF, CT abd was significant for pneumonia and left base with small left pleural effusion -Received 1L IV normal saline, Tamiflu 75 Mg and ceftriaxone 1 g in the ED -Continue ceftriaxone and azithromycin -Continue tamiflu 75 mg BID -Continue IV lasix 40 daily -Blood culture pending, urine culture pending, MRSA nares pending -Strict ins and outs -Fluid restriction 1500ml -daily am labs -Echo pending #AARON- resolved -Most likely secondary to prerenal 2/2 renal congestion 2/2 CHF exacerbation -Baseline Cr 1.2, presented with 1.6 -Lasix 40mg IV daily -Avoid nephrotoxins -INS/Outs -Daily am labs #Asymptomatic complicated UTI #BL renal calculi #Overflow incontinence UA positive for turbid urine, 1+ protein, 2+ blood, leukocyte esterase, RBC 118, WBC 79 with rare bacteria, atrophic kidneys with renal cortical thinning and moderate bilateral renal parenchymal eschar formation, extensive bilateral renal calculi including large staghorn calculus right kidney involving calyces and right renal pelvis, no significant hydronephrosis -On ceftriaxone in the setting of sepsis -Urine Cx pending -F/u with urologist as outpatient for renal calculi #Anemia Likely ANIL vs Inflammatory anemia vs vit B12 Def vs folate def in the setting of poor nutrition -Iron panel- low , -VIT B12, folate level pending -will hold iron for now in the setting of sepsis #Peripheral neuropathy -On gabapentine 300mg TID #Possible respiratory acidosis compensated by metabolic alkalosis 2/2 #Possible AURA, and #Possible OHS HCO3 35.1 -Continue to monitor BMP -CPAP at night -F/u outpatient for sleep study #Abdominal aortic aneurism CT abd/ pel: Infrarenal abdominal aortic aneurysm transverse measurement 6.3 x 5.9 cm compared to 6.2 x [address] abdomen from June 05, 2023. -F/u outpatient with vascular surgeon -Proper BP control #Afib -On eliquis 2.5mg BID #CAD #Hyperlipidemia #HTN s/p stent placement and cardiac bypass grafting On home parvastatin 40mg daily -Started on equivalent atorvastatin 10mg daily -Started on lisinopril 10 mg [facility] maintenance: Dispo: Admitted to [facility] for AHRF 2/2 Influenza B pneumonia and CHF exacerbation. Diet: Cardiac, fluid restriction 1500cc DVT prophylaxix: Eliquis 2.5mg BID CODE: FUll code Discussed the patient with my attending Ann Zurita MD,PGY-3 Attending Provider Attestation/Addendum I have examined the patient, reviewed labs and imaging findings, discussed the case with the resident(s), and reviewed entered orders. I agree with the plan of care as outlined in this note, with these additional summaries/recommendations: Patient seen at bedside. No acute overnight events. Patient reports improvement in shortness of breath that was present on admission. Patient was diagnosed with acute hypoxic respiratory failure & sepsis secondary to influenza B with superimposed bacterial pneumonia and left base most likely secondary to GNR's. Continue IV Rocephin and azithromycin. Sputum, blood, and urine culture pending. Patient has no urinary symptoms to report at this time. There is some concern for possible CHF exacerbation although patient appears euvolemic at this time. Pending echocardiogram. Continue furosemide 40 mg IV at bedtime. Continue Tamiflu for influenza B. Patient endorses chronic back pain and continue home Sidney and gabapentin. CT abdomen on admission showed extensive bilateral renal calculi including large staghorn calculus right kidney involving calyces and right renal pelvis with no significant hydronephrosis. Patient denies flank pain and reports he has a lengthy history of kidney stones. Patient encouraged to stay hydrated and may follow-up with urology outpatient. CT also noted infrarenal abdominal aortic aneurysm with transverse measurement 6.3X 5.9 cm compared to 6.2 X5.4 on June 05, 2023. Patient will need close outpatient follow-up with cardiology/vascular for surgical intervention. Continue blood pressure control. Continue Eliquis 2.5 mg p.o. twice daily for history of atrial fibrillation. Currently rate and rhythm controlled without medications. Resume home antihypertensives. Referral to wound care for decubitus ulcer. Patient would benefit from outpatient sleep study. Repeat hematology and chemistry panel in AM. Dr. Vitale
[2024-03-21] MEDS: FUROSEMIDE INJ 10 MG/ML 4ML VIAL 40 MG IVP (21:42)
[2024-03-21] MEDS: ATORVASTATIN CALCIUM 10 MG TABLET PO (21:44)
[2024-03-22] VITALS (14 sets, daily range): BP systolic 75–161; BP diastolic 38–75; PULSE 73–105; RESP 18–26; TEMP 36.1–37.4; O2SAT 92–100; BMI 41.7; BMI 11.0
[2024-03-22] MEDS: ALBUTEROL/IPRATROPIUM (Duoneb) RT SOL 3 ML NEBU INH ×4 (00:26→18:38)
[2024-03-22 02:13] LABS: Folate 16.28 ng/mL (>5.38); Vitamin B12 239 pg/mL (211-911)
[2024-03-22] MEDS: GABAPENTIN 300 MG CAPSULE PO ×3 (05:19→21:35)
[2024-03-22] MEDS: HYDROcodone/APAP 5/325 TABLET 1 TAB PO ×2 (05:21→14:58)
[2024-03-22 05:46] LABS: Basophils % (Auto) 0 % (0-2.5); Eosinophils # (Auto) 0.2 Thou/mm3 (0.0-0.5); Eosinophils % (Auto) 3 % (0-10); Hematocrit 34.4 % (41.0-53.0); Hemoglobin 10.3 g/dL (13.5-16.0); Immature Granulocytes % (Auto) 0 % (0-0); Immature Granulocytes Auto 0.02 Thou/mm3 (0.00-0.00); Lymphocytes # (Auto) 0.6 Thou/mm3 (1.0-4.8); Lymphocytes % (Auto) 10 % (10-50); Mean Corpuscular HGB Conc 29.9 g/dl (31.0-37.0); Mean Corpuscular Hemoglobin 29.1 pg (25.0-35.0); Mean Corpuscular Volume 97 fL (80-100); Monocytes # (Auto) 0.6 Thou/mm3 (0.0-0.8); Monocytes % (Auto) 10 % (0-12); Neutrophils # (Auto) 4.7 Thou/mm3 (1.8-7.7); Neutrophils % (Auto) 77 % (37-80); Nucleated Red Blood Cell % 0 /100 WBC (0); Platelet Count 213 Thou/mm3 (140-440); RDW Standard Deviation 57.6 fL (35.1-43.9); Red Blood Count 3.54 Miln/mm3 (4.50-5.90)
[2024-03-22 06:23] LABS: Alanine Aminotransferase 16 U/L (10-49); Albumin, Serum 3.7 gm/dL (3.4-4.8); Albumin/Globulin Ratio 1.3 (1.2-2.2); Alkaline Phosphatase 58 U/L (46-116); Anion Gap 6 (7-16); Aspartate Amino Transferase 24 U/L (0-34); BUN/Creatinine Ratio 19 Ratio (12-20); Bilirubin,Total 0.3 mg/dL (0.3-1.2); Blood Urea Nitrogen 29 mg/dL (9-23); Calcium 8.9 mg/dL (8.3-10.6); Calcium (Corrected) 9.1 mg/dL (8.5-10.1); Carbon Dioxide 37.4 mMol/L (20.0-31.0); Chloride 99 mMol/L (98-107); Creatinine (Component) 1.5 mg/dL (0.6-1.3); Globulin 2.9 gm/dL (2.3-3.5); Glucose 123 mg/dL (74-106); Magnesium 2.2 mg/dL (1.6-2.6); Osmolality,Calculated 289 (275-295); Phosphorous 4.1 mg/dL (2.4-5.1); Sodium 142 mMol/L (136-145); Total Protein 6.6 gm/dL (5.7-8.2); eGFR 48 See Note
[2024-03-22] MEDS: VENLAFAXINE XR 37.5 MG CAPCR PO (08:34)
[2024-03-22] MEDS: cefTRIAXone/D5w 1gm IV premix 50 ML IV (08:34)
[2024-03-22] MEDS: AZITHROMYCIN 250 MG TABLET PO (08:35)
[2024-03-22] MEDS: Lisinopril 2.5 MG TABLET 10 MG PO (08:35)
[2024-03-22] MEDS: OSELTAMIVIR 75 MG CAPSULE PO ×2 (08:35→21:35)
[2024-03-22] MEDS: APIXABAN 2.5 MG TABLET PO ×2 (08:35→21:35)
[2024-03-22] MEDS: FERROUS SULF 325 MG TABLET PO (09:44)
--- NOTE | 2024-03-22 13:34 | PC.SS ---
Pt Vel Wang is a 73 y/o male admitted for AHRF 2/2 Influenza. SS contacted patients Nephew Vel aLra , whom is surrogate medical decision maker. Pt's nephew confirmed pt's demographics. Patient resides at [facility] and is alert and oriented. Patient is bed bound and is not able to ambulate. At time of discharge patient will return back to [facility]. Discharge plan: [facility] Next of Kin Nephmaeve Lara
--- NOTE | 2024-03-22 14:56 | ESPR_ITS ---
Documentation for date of: 03/22/24 Subjective Subjective Interval history: No acute overnight events. Continued on 4 L NC, no shortness of breath, no chest pain. Tolerating oral intake without N/V/D/C. Denies fever, chills, headaches, chest pain, sob, cough, GI or urinary symptoms. Exam Vital Signs Temp Pulse Resp BP Pulse Ox O2 Del Method O2 Flow Rate 99.3 F 74 20 138/64 H 99 Nasal Cannula 4 03/22/24 12:00 03/22/24 12:57 03/22/24 12:57 03/22/24 12:00 03/22/24 12:57 03/22/24 12:00 03/22/24 12:57 Narrative Exam GENERAL: Comfortable adult seen resting comfortably in hospital bed, no acute distress,obede VITALS: All vitals were reviewed and the pulse ox is 98% on room air HEENT: Normocephalic, atraumatic. Pupils are equal and reactive. Oral mucosa is moist. NECK: Supple, nontender, no JVD CHEST: Symmetrical, atraumatic and with equal expansion ,Nontender on palpation CARDIOVASCULAR: Heart regular rhythm & rate. S1/S2. no murmur or gallop rub or extra beats. LUNGS: Bilateral wheezing no laboring tachypnea or wheezing. No intercostal subcostal retraction. No rales and no rhonchi. ABDOMEN: Soft, flat, nontender to palpation, no guarding or rebound tenderness. Active and normal bowel sounds. EXTREMITIES:Moves all 4 extremities,No B/L LE edema. SKIN: Warm and dry, no jaundice or rashes noted. NEURO: Patient is AO x 3, Cranial nerves II through XII grossly intact. There is no focal neurologic deficits noted. PSYCHIATRIC: Patient is in normal mood, cooperative, no SI or HI or hallucinations. Objective Labs 03/23/24 05:24 03/22/24 05:03 Labs: Laboratory Results - last 24 hr 03/21/24 03/22/24 04:53 05:03 WBC 6.0 RBC 3.54 L Hgb 10.3 L Hct 34.4 L MCV 97 MCH 29.1 MCHC 29.9 L RDW Std Deviation 57.6 H Plt Count 213 Neut % (Auto) 77 Lymph % (Auto) 10 [place] % (Auto) 10 Eos % (Auto) 3 Baso % (Auto) 0 Neut # (Auto) 4.7 Lymph # (Auto) 0.6 L [place] # (Auto) 0.6 Eos # (Auto) 0.2 Baso # (Auto) 0.0 Immature Gran # (Auto) 0.02 H Absolute Nucleated RBC 0.00 Immature Gran % 0 Nucleated RBC % 0 Sodium 142 Potassium 4.0 Chloride 99 Carbon Dioxide 37.4 H Anion Gap 6 L BUN 29 H Creatinine 1.5 H Estim Creat Clear Calc Not Performed. eGFR 48 L BUN/Creatinine Ratio 19 Glucose 123 H Calculated Osmolality 289 Calcium 8.9 Corrected Calcium 9.1 Phosphorus 4.1 Magnesium 2.2 Total Bilirubin 0.3 AST 24 ALT 16 Alkaline Phosphatase 58 Total Protein 6.6 Albumin 3.7 Globulin 2.9 Albumin/Globulin Ratio 1.3 Vitamin B12 239 Folate 16.28 Quality Measures Quality Measures none Advance care planning discussed with:: patient Assessment & Plan Assessment Current Active Medications: Generic Name Dose Route Start Last Admin Trade Name Freq PRN Reason Stop Dose Admin Acetaminophen 650 mg 03/20/24 17:08 Acetaminophen 325 Mg Tablet PO 04/19/24 17:07 Q6H PRN Fever >101.5 Acetaminophen 650 mg 03/20/24 17:08 Acetaminophen 325 Mg Tablet PO 04/19/24 17:07 Q6H PRN PAIN SCALE 1-3 (mild Hydrocodone Bitart/Acetaminophen 1 tab 03/20/24 17:22 03/22/24 05:21 Hydrocodone/Apap 5/325 Tablet PO 03/25/24 17:21 1 tab Q6HR PRN Administration Pain 4-10 Albuterol/Ipratropium 3 ml 03/20/24 17:30 03/22/24 12:56 Albuterol/Ipratropium (Duoneb) Rt Jeanie 3 Ml Nebu INH 04/19/24 17:29 3 ml Q6H ADRIAN Administration Apixaban 2.5 mg 03/20/24 21:00 03/22/24 08:35 Apixaban 2.5 Mg Tablet PO 04/19/24 20:59 2.5 mg BID ADRIAN Administration Atorvastatin Calcium 10 mg 03/20/24 21:00 03/21/24 21:44 Atorvastatin Calcium 10 Mg Tablet PO 04/19/24 20:59 10 mg HS ADRIAN Administration Azithromycin 250 mg 03/21/24 09:00 03/22/24 08:35 Azithromycin 250 Mg Tablet PO 03/25/24 06:00 250 mg QDAY ADRIAN Administration Ferrous Sulfate 325 mg 03/22/24 09:00 03/22/24 09:44 Ferrous Sulf 325 Mg Tablet PO 04/21/24 08:59 325 mg QDAY ADRINA Administration Furosemide 40 mg 03/22/24 21:00 Furosemide 40 Mg Tablet PO 04/21/24 20:59 HS ADRIAN Gabapentin 300 mg 03/20/24 22:00 03/22/24 14:53 Gabapentin 300 Mg Capsule PO 04/19/24 21:59 300 mg TID ADRIAN Administration Ceftriaxone Sodium/Dextrose 50 mls @ 100 mls/hr 03/21/24 09:00 03/22/24 08:34 Rocephin/D5w 1gm Iv Premix IV 03/28/24 08:59 100 mls/hr QDAY ADRIAN Administration Lactulose 20 gm 03/20/24 17:08 Lactulose Syrup 20 Gm/30 Ml Udc PO 04/20/24 08:59 QDAY PRN CONSTIPATION Protocol Lisinopril 10 mg 03/21/24 08:30 03/22/24 08:35 Lisinopril 2.5 Mg Tablet PO 04/20/24 08:29 10 mg QDAY ADRIAN Administration Oseltamivir Phosphate 75 mg 03/20/24 21:00 03/22/24 08:35 Oseltamivir 75 Mg Capsule PO 03/25/24 09:01 75 mg BID ADRIAN Administration Venlafaxine HCl 37.5 mg 03/21/24 09:00 03/22/24 08:34 Venlafaxine Xr 37.5 Mg Capcr PO 04/20/24 08:59 37.5 mg QDAY ADRIAN Administration Plan The patient is a 73-year-old male with significant past medical history of A-fib on Eliquis, hyperlipidemia, coronary artery disease s/p stent placement and cardiac bypass grafting, history of DVT, possible CHF, morbid obesity, recurrent UTIs with urinary overflow incontinence and bed bound presented with [facility] with chief complaint of SOB, generalized weakness and back pain x 2-3 days. The patient received and was admitted to telemetry unit for further management of acute hypoxic respiratory failure secondary to influenza B pneumonia and CHF exacerbation. Acute hypoxic respiratory failure 2/2- improving Sepsis (resolved) 2/2 Influenza B pneumonia CHF exacerbation Presented with SOB, generalized weakness and back pain. Septic admission with 3 /4 SIRS positive with fever, tachycardia and tachypnea, and positive influenza. Admission radiography showed moderate CHF, small left pleural effusion and left base pneumonia. Adequately fluid resuscitated, continued on ANTIBIOTICS and TAMIFLU. Sepsis resolved. Currently on 4 L NC. Denies chest pain or shortness of breath. No leukocytosis, afebrile. Patient has incontinence, no urine output recorded. Per nurse patient diuresing well otherwise. No signs of overload on exam. MRSA negative. 48 blood culture negative. Sputum culture no growth. ? Continue CEFTRIAXONE (03/21 to [present]) ? Continue AZITHROMYCIN (03/21 to [present]) ? Continue TAMIFLU (03/21 to [present]) ? Continue LASIX 40 mg PO daily ? Strict MARIA ESTHER's, fluid restriction 1500 cc daily ? Pending echocardiogram ? Pending sputum culture Prerenal AARON In settings of CHF exacerbation. Admission CR 1.5 around baseline. Continues fluctuating between 1.2 and 1.5, likely as a result of change in fluid status and urine output. GFR around 40?50s. ? Renally dose meds, avoid overdiuresis and NEPHROTOXINS ? Change LASIX to orally as above ? Daily CMP Asymptomatic complicated UTI BL renal calculi Overflow incontinence UA positive for turbid urine, 1+ protein, 2+ blood, leukocyte esterase, RBC 118, WBC 79 with rare bacteria, atrophic kidneys with renal cortical thinning and moderate bilateral renal parenchymal eschar formation, extensive bilateral renal calculi including large staghorn calculus right kidney involving calyces and right renal pelvis, no significant hydronephrosis ? ANTIBIOTICS as above ? Pending urine culture, currently negative. ? Recommended outpatient urology follow-up Chronic anemia, likely iron deficiency Hgb around 10?11. No sign of active bleed. Workup indicated low iron storage, borderline low B12 and normal folate. ? Holding iron supplement in settings of active infection ? Recommended outpatient follow-up, consider starting iron once infection resolves Peripheral neuropathy ? Continued home GABAPENTIN 300 mg TID AURA versus OHS HCO3 35.1. Baby habitus high risk for AURA versus OHS ? Continue BiPAP at night ? Recommended sleep study outpatient Abdominal aortic aneurism CT abd/ pel: Infrarenal abdominal aortic aneurysm transverse measurement 6.3 x 5.9 cm compared to 6.2 x 5[address] abdomen from June 05, 2023. ? Continue blood pressure control. ? Recommended outpatient follow-up with vascular surgery Afib, likely paroxysmal CAD, HTN, HLD Currently rate controlled. BP within normal limits, HR in 70s. ? Continued home ELIQUIS 2.5 mg BID ? Continue ATORVASTATIN 10 mg daily ? Continue LISINOPRIL 20 mg daily Health maintenance Diet: Cardiac, fluid restriction 1500 cc GI prophylaxis: Not indicated DVT prophylaxis: ELIQUIS Antibiotics: CEFTRIAXONE, AZITHROMYCIN, TAMIFLU CODE STATUS: Full code Disposition: Pending echocardiogram Patient case was discussed with attending, Isrrael Retana MD and senior residents Dr. Hinojosa and Dr. Heart. Roderick Caceres, DO PGYI Senior resident Attestation : Patient was examined bedside this morning, he was saturating well on 4 L of oxygen via nasal cannula. Pending physical therapy evaluation ,echo, sputum culture and Dr. Limon's reccs . I discussed with and supervised my co-resident involved in the care of this patient. I agree with the assessment and plan as documented above. Ann Hinojosa,PGY-3 Disclaimer: Despite multiple revisions, due to the dictation software being used, the document below may not be free of grammatical errors including phonetic/typographic errors. However, this does not deter from our commitment to providing health care in the patient's best interest in mind. Attending Provider Attestation/Addendum I reviewed labs, imaging, EKG, home medications and prior available records. Face to face evaluation was performed by me. I have personally examined the patient and discussed assessment and plan with the IM team. I reviewed the resident note and agree with the plan with exceptions as below. Acute hypoxic respiratory failure Influenza A CHF exacerbation, unclear EF AARON on CKD 3A Creatinine slightly increased. Decreased Lasix dose to 40 mg daily Monitor kidney function. Avoid nephrotoxins Continue Lasix. Follow-up echocardiogram. Consulted cardiology.
--- NOTE | 2024-03-22 16:20 | ESCONSULT_ITS ---
<Statement entered by Janet Limon MD - 03/26/24 09:02> I personally evaluated the patient known to me has a history of CAD previous pulmonary embolism admitted hospital with pneumonia and shortness with congestive heart failure symptoms but clinically well compensated I evaluated the patient all the essential components are reviewed agree with the treatment plan recommendation as documented by Dr. Johnson PGY 2 will continue to monitor the patient HPI Data of Consult Requesting Physician: Sami Olea DO Admitting Provider: Sami Olea DO Attending Provider: Sami Olea DO Primary Care Provider: Janet Limon MD Consult Narrative Reason for consult: acute CHF exacerbation History of present illness: Patient is a 40-[id number]-year-old male with past medical history significant for A-fib on Eliquis, hyperlipidemia, coronary artery disease status post stent placement and cardiac bypass grafting, history of DVT, possible CHF, morbid obesity, recurrent UTIs with urinary overflow incontinence and bedbound who presented to the ED with shortness of breath and weakness and admitted for acute hypoxic respiratory failure secondary to influenza B pneumonia and CHF exacerbation. In the ED, patient presented with elevated blood pressure of 187/71 and requiring oxygen. Labs significant for elevated creatinine at 1.6. UA positive for turbid urine, 1+ protein, 2+ blood leukocyte esterase and pyuria. Patient tested positive for influenza B pneumonia. Chest x-ray showed significant mild to moderate CHF. CT abdomen pelvis showed pneumonia on left base with left pleural effusion, moderate bilateral renal parenchymal scar formation, extensive bilateral renal calculi including large staghorn calculus of right kidney, and infrarenal abdominal aortic aneurysm measuring 6.3 x 5.9 cm which is slightly increased from previous CT abdomen taken from June 05, 2023, 6.2 x 5.4 cm. Past medical history: As mentioned above Past surgical history: Open heart surgery for cardiac bypass grafting Social history: Denies any alcohol, tobacco or illicit drug use Allergies: NKDA Medications: Eliquis 2.5 mg twice daily, furosemide 40 mg p.o. daily, gabapentin 300 mg p.o. 3 times daily, [place] 1 tab 4 times daily, pravastatin 40 mg daily, venlafaxine 5 mg p.o. daily cc:: cc: Sami Olea DO Review of Systems Review of Systems Systems Reviewed: All systems reviewed, normal except as documented Exam Vital Signs Temp Pulse Resp BP Pulse Ox O2 Del Method O2 Flow Rate 99.3 F 74 20 138/64 H 99 Nasal Cannula 4 03/22/24 12:00 03/22/24 12:57 03/22/24 12:57 03/22/24 12:00 03/22/24 12:57 03/22/24 12:00 03/22/24 12:57 Narrative Exam General Appearance: Pt in mild acute distress laying in bed on 7L NC, receiving a breathing treatment. HEENT: NC/AT, no scleral icterus, no conjunctival pallor, MMM Lungs: B/l wheezing and rhonchi diffusely present in all lung lord, CVS: RRR, S1/S2 heard, no murmurs or rubs appreciated 2+ bilateral pitting edema up to the knees, no JVD ABD: Soft, non-tender, non-distended, BS + in all 4 quadrants EXT: no deformity/edema/lesions/cyanosis/clubbing, radial pulses 2+ BL, DP pulses 2 + BL SKIN: Skin exam normal without any rashes. Neuro: A&O x 3. No gross neurological deficits. Psych: Appropriate mood and affect Results Labs 03/22/24 05:03 03/22/24 05:03 Labs: Short CBC 03/22/24 Range/Units 05:03 WBC 6.0 (3.8-10.6) Thou/mm3 Hgb 10.3 L (13.5-16.0) g/dL Hct 34.4 L (41.0-53.0) % Plt Count 213 (140-440) Thou/mm3 BMP 03/22/24 05:03 Sodium 142 Potassium 4.0 Chloride 99 Carbon Dioxide 37.4 H BUN 29 H Creatinine 1.5 H Glucose 123 H Calcium 8.9 Liver Function 03/22/24 Range/Units 05:03 Total Bilirubin 0.3 (0.3-1.2) mg/dL AST 24 (0-34) U/L ALT 16 (10-49) U/L Alkaline Phosphatase 58 (46-116) U/L Albumin 3.7 (3.4-4.8) gm/dL Quality Measures Quality Measures none Advance care planning discussed with:: patient Medications Home Medications and Allergies Home Medications ?Medication ?Instructions ?Recorded ?Confirmed ?Type venlafaxine 75 mg capsule,extended 75 mg PO QDAY 05/16/17 03/21/24 History release 24 hr (Effexor XR) apixaban 2.5 mg tablet (Eliquis) 2.5 mg PO BID 09/17/19 03/21/24 History hydrocodone 5 mg-acetaminophen 325 1 tab PO Q6H PRN Pain, Moderate 09/17/19 03/21/24 History mg tablet furosemide 40 mg tablet 40 mg PO QDAY 07/29/22 03/21/24 History gabapentin 300 mg capsule 300 mg PO TID 07/29/22 03/21/24 History pravastatin 40 mg tablet 40 mg PO QDAY 07/29/22 03/21/24 History Allergies Allergy/AdvReac Type Severity Reaction Status Date / Time bee venom protein (honey bee) Allergy Swelling Verified 03/29/23 16:38 of Lip/Tongue/Throat Visit Medications Acetaminophen (Acetaminophen 325 Mg Tablet) 650 mg PO Q6H PRN PRN Reason: Fever >101.5 Stop: 04/19/24 17:07 Acetaminophen (Acetaminophen 325 Mg Tablet) 650 mg PO Q6H PRN PRN Reason: PAIN SCALE 1-3 (mild Stop: 04/19/24 17:07 Hydrocodone Bitart/Acetaminophen (Hydrocodone/Apap 5/325 Tablet) 1 tab PO Q6HR PRN PRN Reason: Pain 4-10 Stop: 03/25/24 17:21 Last Admin: 03/22/24 14:58 Dose: 1 tab Albuterol/Ipratropium (Albuterol/Ipratropium (Duoneb) Rt Jeanie 3 Ml Nebu) 3 ml INH Q6H ADRIAN Stop: 04/19/24 17:29 Last Admin: 03/22/24 12:56 Dose: 3 ml Apixaban (Apixaban 2.5 Mg Tablet) 2.5 mg PO BID [facility] Stop: 04/19/24 20:59 Last Admin: 03/22/24 08:35 Dose: 2.5 mg Atorvastatin Calcium (Atorvastatin Calcium 10 Mg Tablet) 10 mg PO HS [facility] Stop: 04/19/24 20:59 Last Admin: 03/21/24 21:44 Dose: 10 mg Azithromycin (Azithromycin 250 Mg Tablet) 250 mg PO QDAY [facility] Stop: 03/25/24 06:00 Last Admin: 03/22/24 08:35 Dose: 250 mg Ferrous Sulfate (Ferrous Sulf 325 Mg Tablet) 325 mg PO QDAY [facility] Stop: 04/21/24 08:59 Last Admin: 03/22/24 09:44 Dose: 325 mg Furosemide (Furosemide 40 Mg Tablet) 40 mg PO [facility] Stop: 04/21/24 20:59 Gabapentin (Gabapentin 300 Mg Capsule) 300 mg PO TID ADRIAN Stop: 04/19/24 21:59 Last Admin: 03/22/24 14:53 Dose: 300 mg Ceftriaxone Sodium/Dextrose (Rocephin/D5w 1gm Iv Premix) 50 mls @ 100 mls/hr IV QDAY [facility] Stop: 03/28/24 08:59 Last Admin: 03/22/24 08:34 Dose: 100 mls/hr Lactulose (Lactulose Syrup 20 Gm/30 Ml Udc) 20 gm PO QDAY PRN; Protocol PRN Reason: CONSTIPATION Stop: 04/20/24 08:59 Lisinopril (Lisinopril 2.5 Mg Tablet) 10 mg PO QDAY [facility] Stop: 04/20/24 08:29 Last Admin: 03/22/24 08:35 Dose: 10 mg Oseltamivir Phosphate (Oseltamivir 75 Mg Capsule) 75 mg PO BID ADRIAN Stop: 03/25/24 09:01 Last Admin: 03/22/24 08:35 Dose: 75 mg Venlafaxine HCl (Venlafaxine Xr 37.5 Mg Capcr) 37.5 mg PO QDAY [facility] Stop: 04/20/24 08:59 Last Admin: 03/22/24 08:34 Dose: 37.5 mg Discontinued Medications Acetaminophen (Acetaminophen 500 Mg Tablet) 1,000 mg PO X1 ONE Stop: 03/20/24 11:31 Last Admin: 03/20/24 12:25 Dose: 1,000 mg Albuterol/Ipratropium (Albuterol/Ipratropium (Duoneb) Rt Jeanie 3 Ml Nebu) 3 ml INH X1 ONE Stop: 03/20/24 11:29 Last Admin: 03/20/24 11:42 Dose: 3 ml Azithromycin (Azithromycin 250 Mg Tablet) 500 mg PO X1 ONE Stop: 03/20/24 20:45 Last Admin: 03/20/24 23:09 Dose: 500 mg Furosemide (Furosemide Inj 10 Mg/Ml 4ml Vial) 40 mg IVP [facility] Stop: 04/19/24 20:59 Last Admin: 03/21/24 21:42 Dose: 40 mg Sodium Chloride (Ns) 1,000 mls @ 999 mls/hr IV .Q1H1M ONE Stop: 03/20/24 13:08 Last Infusion: 03/20/24 16:04 Dose: Infused Ceftriaxone Sodium/Dextrose (Rocephin/D5w 1gm Iv Premix) 50 mls @ 100 mls/hr IV X1 ONE Stop: 03/20/24 14:02 Last Infusion: 03/20/24 14:50 Dose: Infused Oseltamivir Phosphate (Oseltamivir 75 Mg Capsule) 75 mg PO X1 ONE Stop: 03/20/24 12:09 Last Admin: 03/20/24 12:55 Dose: 75 mg Sodium Chloride (Sodium Chloride Rt 10% 15 Ml Nebu) 5 ml INH X1 ONE Stop: 03/20/24 17:06 Assessment & Plan Plan Patient is a 39-ajuw-tod-year-old male with past medical history significant for A-fib on Eliquis, hyperlipidemia, coronary artery disease status post stent placement and cardiac bypass grafting, history of DVT, possible CHF, morbid obesity, recurrent UTIs with urinary overflow incontinence and bedbound who presented to the ED with shortness of breath and weakness and admitted for acute hypoxic respiratory failure secondary to influenza B pneumonia and CHF exacerbation. Cardiology was consulted for AHRF 2/2 acute CHF exacerbation. #AHHRF 2/2 CHF exacerbation #Afib, likely paroxysmal #Hx of CAD, HTN, HLD Patient presented with severe SOB and generalized weakness. Currently rate controlled. BNP 91. ChadVascore is 3. Last EKG showed A-fib, but has been sinus on telemonitor. - Continue Lasix 40mg QD with strict I's & O's with fluid restriction of 1500cc - Will f/u Echo to evaluate for any wall motion abnormalities and assess for LVEF ? Continue home Eliquis 2.5 mg BID ? Continue Atorvastatin 10 mg daily ? Continue Lisinopril 20 mg daily #Acute hypoxic respiratory failure in the setting of sepsis and Influenza B PNA #Prerenal AARON #Asymptomatic complicated UTI #BL renal calculi #Overflow incontinence #Chronic anemia, likely iron deficiency #Peripheral neuropathy #AURA versus OHS #Abdominal aortic aneurism Rest of problems as per primary team Patient's plan and care discussed with my attending, Dr. Braxton Johnson MD PGY-2
--- NOTE | 2024-03-22 20:18 | PD.RESEVENT ---
Documentation for date of: 03/22/24 Event Note Event Note: At approximately 8 PM a rapid response was called for low blood pressure. Niece reported blood pressure was around 70/66 with a MAP of 55 Upon arrival patient was assessed and had no symptoms of SOB, chest pain, dizziness, presyncope. However he was upset about the large group of people in his room. After about 10 minutes blood pressure was rechecked and spontaneously increased to 120/99. No intervention was necessary. Plan of care discussed with Attending Dr. Ronny Maldonado MD PGY 1
--- NOTE | 2024-03-22 20:19 | PC.NURSE ---
Rapid response called at 2000 for low blood pressure, 70s/40s and patient lethargic, falls asleep immediately. Patient repositioned and patient mad, yelling at staff to stop touching him, patient hitting at staff and blood pressure came up WNL. Patient refusing Tele box at this time and MDs are aware. Patient fell back asleep quickly. Will continue to closely monitor patient.
[2024-03-22] MEDS: Furosemide 40 MG TABLET PO (21:33)
[2024-03-22] MEDS: ATORVASTATIN CALCIUM 10 MG TABLET PO (21:35)
--- NOTE | 2024-03-22 22:52 | PC.NURSE ---
Patient allowed us to put the Tele box back on.
[2024-03-23] VITALS (16 sets, daily range): BP systolic 117–148; BP diastolic 53–90; PULSE 51–81; RESP 16–25; TEMP 36.3–37; O2SAT 94–100
[2024-03-23] MEDS: ALBUTEROL/IPRATROPIUM (Duoneb) RT SOL 3 ML NEBU INH ×4 (00:04→18:20)
[2024-03-23] MEDS: GABAPENTIN 300 MG CAPSULE PO ×3 (05:56→22:12)
[2024-03-23] MEDS: HYDROcodone/APAP 5/325 TABLET 1 TAB PO ×3 (05:56→22:12)
[2024-03-23 06:39] LABS: Basophils % (Auto) 0 % (0-2.5); Eosinophils # (Auto) 0.2 Thou/mm3 (0.0-0.5); Eosinophils % (Auto) 3 % (0-10); Hematocrit 34.6 % (41.0-53.0); Hemoglobin 10.5 g/dL (13.5-16.0); Immature Granulocytes % (Auto) 0 % (0-0); Immature Granulocytes Auto 0.02 Thou/mm3 (0.00-0.00); Lymphocytes # (Auto) 0.6 Thou/mm3 (1.0-4.8); Lymphocytes % (Auto) 10 % (10-50); Mean Corpuscular HGB Conc 30.3 g/dl (31.0-37.0); Mean Corpuscular Hemoglobin 29.5 pg (25.0-35.0); Mean Corpuscular Volume 97 fL (80-100); Monocytes # (Auto) 0.5 Thou/mm3 (0.0-0.8); Monocytes % (Auto) 8 % (0-12); Neutrophils # (Auto) 5.1 Thou/mm3 (1.8-7.7); Neutrophils % (Auto) 79 % (37-80); Nucleated Red Blood Cell % 0 /100 WBC (0); Platelet Count 199 Thou/mm3 (140-440); RDW Standard Deviation 58.2 fL (35.1-43.9); Red Blood Count 3.56 Miln/mm3 (4.50-5.90); White Blood Count 6.4 Thou/mm3 (3.8-10.6)
[2024-03-23 08:21] LABS: Alanine Aminotransferase 17 U/L (10-49); Albumin, Serum 3.7 gm/dL (3.4-4.8); Albumin/Globulin Ratio 1.3 (1.2-2.2); Alkaline Phosphatase 54 U/L (46-116); Anion Gap 10 (7-16); Aspartate Amino Transferase 35 U/L (0-34); BUN/Creatinine Ratio 19 Ratio (12-20); Bilirubin,Total 0.3 mg/dL (0.3-1.2); Blood Urea Nitrogen 31 mg/dL (9-23); Calcium 8.8 mg/dL (8.3-10.6); Chloride 99 mMol/L (98-107); Creatinine (Component) 1.6 mg/dL (0.6-1.3); Estimated Creatinine Clearance 56.8 mL/min (>60); Globulin 2.9 gm/dL (2.3-3.5); Glucose 115 mg/dL (74-106); Magnesium 2.2 mg/dL (1.6-2.6); Osmolality,Calculated 288 (275-295); Phosphorous 3.4 mg/dL (2.4-5.1); Potassium 4.7 mMol/L (3.4-5.1); Sodium 141 mMol/L (136-145); Total Protein 6.6 gm/dL (5.7-8.2); eGFR 45 See Note
[2024-03-23] MEDS: cefTRIAXone/D5w 1gm IV premix 50 ML IV (09:05)
[2024-03-23] MEDS: AZITHROMYCIN 250 MG TABLET PO (09:06)
[2024-03-23] MEDS: APIXABAN 2.5 MG TABLET PO ×2 (09:06→22:13)
[2024-03-23] MEDS: VENLAFAXINE XR 37.5 MG CAPCR PO (09:06)
[2024-03-23] MEDS: FERROUS SULF 325 MG TABLET PO (09:06)
[2024-03-23] MEDS: OSELTAMIVIR 75 MG CAPSULE PO ×2 (09:06→22:12)
[2024-03-23] MEDS: Lisinopril 2.5 MG TABLET 10 MG PO (09:06)
--- NOTE | 2024-03-23 10:44 | ESPR_ITS ---
<Statement entered by Ann Hinojosa MD - 03/23/24 17:19> Patient was examined bedside this morning, echo showed Normal LV size and function. Mild LVH. Estimated EF 60-65%,Mild RV dilatation. Normal RV function.Moderate LA dilatation.The ascending aorta is mildly dilated. The ascending aorta is mildly dilated. Mild MAC. Moderate MR. Mild TR Mild AV sclerosis without stenosis. Patient is stable to discharge back to SNF. But his SNF does not have isolation room so patient will be staying additional 2 days to complete his Tamiflu . I discussed with and supervised my co-resident involved in the care of this patient. I agree with the assessment and plan as documented above. Ann Hinojosa,PGY-3 Disclaimer: Despite multiple revisions, due to the dictation software being used, the document below may not be free of grammatical errors including phonetic/typographic errors. However, this does not deter from our commitment to providing health care in the patient's best interest in mind. Documentation for date of: 03/23/24 Subjective Subjective Interval history: No overnight events. Doing well this morning. On 2L NC breathing okay without sob. Tolerating oral intake with N/V. Denies fever, chills, headaches, chest pain, sob, cough, GI or urinary symptoms. Exam Vital Signs Temp Pulse Resp BP Pulse Ox O2 Del Method O2 Flow Rate 97.3 F 70 18 124/53 L 94 L Nasal Cannula 2 03/23/24 08:00 03/23/24 09:06 03/23/24 08:00 03/23/24 09:06 03/23/24 08:00 03/23/24 08:00 03/23/24 08:00 Narrative Exam GENERAL: Comfortable adult seen resting comfortably in hospital bed, no acute distress,obede VITALS: All vitals were reviewed and the pulse ox is 98% on room air HEENT: Normocephalic, atraumatic. Pupils are equal and reactive. Oral mucosa is moist. NECK: Supple, nontender, no JVD CHEST: Symmetrical, atraumatic and with equal expansion ,Nontender on palpation CARDIOVASCULAR: Heart regular rhythm & rate. S1/S2. no murmur or gallop rub or extra beats. LUNGS: Bilateral wheezing no laboring tachypnea or wheezing. No intercostal subcostal retraction. No rales and no rhonchi. ABDOMEN: Soft, flat, nontender to palpation, no guarding or rebound tenderness. Active and normal bowel sounds. EXTREMITIES:Moves all 4 extremities,No B/L LE edema. SKIN: Warm and dry, no jaundice or rashes noted. NEURO: Patient is AO x 3, Cranial nerves II through XII grossly intact. There is no focal neurologic deficits noted. PSYCHIATRIC: Patient is in normal mood, cooperative, no SI or HI or hallucinations. Objective Labs 03/23/24 05:24 03/23/24 05:24 Labs: Laboratory Results - last 24 hr 03/23/24 05:24 WBC 6.4 RBC 3.56 L Hgb 10.5 L Hct 34.6 L MCV 97 MCH 29.5 MCHC 30.3 L RDW Std Deviation 58.2 H Plt Count 199 Neut % (Auto) 79 Lymph % (Auto) 10 [place] % (Auto) 8 Eos % (Auto) 3 Baso % (Auto) 0 Neut # (Auto) 5.1 Lymph # (Auto) 0.6 L [place] # (Auto) 0.5 Eos # (Auto) 0.2 Baso # (Auto) 0.0 Immature Gran # (Auto) 0.02 H Absolute Nucleated RBC 0.00 Immature Gran % 0 Nucleated RBC % 0 Sodium 141 Potassium 4.7 D Chloride 99 Carbon Dioxide 32.0 H Anion Gap 10 BUN 31 H Creatinine 1.6 H Estim Creat Clear Calc 56.8 L eGFR 45 L BUN/Creatinine Ratio 19 Glucose 115 H Calculated Osmolality 288 Calcium 8.8 Corrected Calcium 9.0 Phosphorus 3.4 Magnesium 2.2 Total Bilirubin 0.3 AST 35 H ALT 17 Alkaline Phosphatase 54 Total Protein 6.6 Albumin 3.7 Globulin 2.9 Albumin/Globulin Ratio 1.3 Quality Measures Quality Measures none Advance care planning discussed with:: patient Assessment & Plan Assessment Current Active Medications: Generic Name Dose Route Start Last Admin Trade Name Freq PRN Reason Stop Dose Admin Acetaminophen 650 mg 03/20/24 17:08 Acetaminophen 325 Mg Tablet PO 04/19/24 17:07 Q6H PRN Fever >101.5 Acetaminophen 650 mg 03/20/24 17:08 Acetaminophen 325 Mg Tablet PO 04/19/24 17:07 Q6H PRN PAIN SCALE 1-3 (mild Hydrocodone Bitart/Acetaminophen 1 tab 03/20/24 17:22 03/23/24 05:56 Hydrocodone/Apap 5/325 Tablet PO 03/25/24 17:21 1 tab Q6HR PRN Administration Pain 4-10 Albuterol/Ipratropium 3 ml 03/20/24 17:30 03/23/24 07:06 Albuterol/Ipratropium (Duoneb) Rt Jeanie 3 Ml Nebu INH 04/19/24 17:29 3 ml Q6H ADRIAN Administration Apixaban 2.5 mg 03/20/24 21:00 03/23/24 09:06 Apixaban 2.5 Mg Tablet PO 04/19/24 20:59 2.5 mg BID ADRIAN Administration Atorvastatin Calcium 10 mg 03/20/24 21:00 03/22/24 21:35 Atorvastatin Calcium 10 Mg Tablet PO 04/19/24 20:59 10 mg HS ADRIAN Administration Azithromycin 250 mg 03/21/24 09:00 03/23/24 09:06 Azithromycin 250 Mg Tablet PO 03/25/24 06:00 250 mg QDAY ADRIAN Administration Ferrous Sulfate 325 mg 03/22/24 09:00 03/23/24 09:06 Ferrous Sulf 325 Mg Tablet PO 04/21/24 08:59 325 mg QDAY ADRIAN Administration Furosemide 40 mg 03/22/24 21:00 03/22/24 21:33 Furosemide 40 Mg Tablet PO 04/21/24 20:59 40 mg HS ADRIAN Administration Gabapentin 300 mg 03/20/24 22:00 03/23/24 05:56 Gabapentin 300 Mg Capsule PO 04/19/24 21:59 300 mg TID ADRIAN Administration Ceftriaxone Sodium/Dextrose 50 mls @ 100 mls/hr 03/21/24 09:00 03/23/24 09:05 Rocephin/D5w 1gm Iv Premix IV 03/28/24 08:59 100 mls/hr QDAY ADRIAN Administration Lactulose 20 gm 03/20/24 17:08 Lactulose Syrup 20 Gm/30 Ml Udc PO 04/20/24 08:59 QDAY PRN CONSTIPATION Protocol Lisinopril 10 mg 03/21/24 08:30 03/23/24 09:06 Lisinopril 2.5 Mg Tablet PO 04/20/24 08:29 10 mg QDAY ADRIAN Administration Oseltamivir Phosphate 75 mg 03/20/24 21:00 03/23/24 09:06 Oseltamivir 75 Mg Capsule PO 03/25/24 09:01 75 mg BID ADRIAN Administration Venlafaxine HCl 37.5 mg 03/21/24 09:00 03/23/24 09:06 Venlafaxine Xr 37.5 Mg Capcr PO 04/20/24 08:59 37.5 mg QDAY ADRIAN Administration Plan The patient is a 73-year-old male with significant past medical history of A-fib on Eliquis, hyperlipidemia, coronary artery disease s/p stent placement and cardiac bypass grafting, history of DVT, possible CHF, morbid obesity, recurrent UTIs with urinary overflow incontinence and bed bound presented with [facility] with chief complaint of SOB, generalized weakness and back pain x 2-3 days. The patient received and was admitted to telemetry unit for further management of acute hypoxic respiratory failure secondary to influenza B pneumonia and CHF exacerbation. Pending ECHO before discharge to [facility]. Acute hypoxic respiratory failure 2/2- improving Sepsis (resolved) 2/2 Influenza B pneumonia CHF exacerbation Presented with SOB, generalized weakness and back pain. Septic admission with 3 /4 SIRS positive with fever, tachycardia and tachypnea, and positive influenza. Admission radiography showed moderate CHF, small left pleural effusion and left base pneumonia. Adequately fluid resuscitated, continued on ANTIBIOTICS and TAMIFLU. Sepsis resolved. Currently on 4 L NC. Denies chest pain or shortness of breath. No leukocytosis, afebrile. Patient has incontinence, no urine output recorded. Per nurse patient diuresing well otherwise. No signs of overload on exam. MRSA negative. 48 blood culture negative. Sputum culture no growth. ? Continue CEFTRIAXONE (1/5 to [present]) ? Continue AZITHROMYCIN (1/5 to [present]) ? Continue TAMIFLU (/5 to [present]) ? Continue LASIX 40 mg PO daily ? Strict MARIA ESTHER's, fluid restriction 1500 cc daily ? Pending sputum culture, negative still ? Pending echocardiogram Prerenal AARON In settings of CHF exacerbation. Admission CR 1.5 around baseline. Continues fluctuating between 1.2 and 1.5, likely as a result of change in fluid status and urine output. GFR around 40?50s. ? Renally dose meds, avoid overdiuresis and NEPHROTOXINS ? Change LASIX to orally as above ? Daily CMP Asymptomatic complicated UTI BL renal calculi Overflow incontinence UA positive for turbid urine, 1+ protein, 2+ blood, leukocyte esterase, RBC 118, WBC 79 with rare bacteria, atrophic kidneys with renal cortical thinning and moderate bilateral renal parenchymal eschar formation, extensive bilateral renal calculi including large staghorn calculus right kidney involving calyces and right renal pelvis, no significant hydronephrosis ? ANTIBIOTICS as above ? Pending urine culture, currently negative. ? Recommended outpatient urology follow-up Chronic anemia, likely iron deficiency Hgb around 10?11. No sign of active bleed. Workup indicated low iron storage, borderline low B12 and normal folate. ? Holding iron supplement in settings of active infection ? Recommended outpatient follow-up, consider starting iron once infection resolves Peripheral neuropathy ? Continued home GABAPENTIN 300 mg TID AURA versus OHS HCO3 35.1. Baby habitus high risk for AURA versus OHS ? Continue BiPAP at night ? Recommended sleep study outpatient Abdominal aortic aneurism CT abd/ pel: Infrarenal abdominal aortic aneurysm transverse measurement 6.3 x 5.9 cm compared to 6.2 x 5.[address] abdomen from June 05, 2023. ? Continue blood pressure control. ? Recommended outpatient follow-up with vascular surgery Afib, likely paroxysmal CAD, HTN, HLD Currently rate controlled. BP within normal limits, HR in 70s. ? Continued home ELIQUIS 2.5 mg BID ? Continue ATORVASTATIN 10 mg daily ? Continue LISINOPRIL 20 mg daily Health maintenance Diet: Cardiac, fluid restriction 1500 cc GI prophylaxis: Not indicated DVT prophylaxis: ELIQUIS Antibiotics: CEFTRIAXONE, AZITHROMYCIN, TAMIFLU CODE STATUS: Full code Disposition: Pending echocardiogram Patient case was discussed with attending, Isrrael Retana MD and senior residents Dr. Hinojosa and Dr. Heart. Roderick Caceres DO PGYI Attending Provider Attestation/Addendum I reviewed labs, imaging, EKG, home medications and prior available records. Face to face evaluation was performed by me. I have personally examined the patient and discussed assessment and plan with the IM team. I reviewed the resident note and agree with the plan with exceptions as below. Acute hypoxic respiratory failure Influenza A CHF exacerbation, preserved EF AARON on CKD 3A Creatinine slightly increased. Decreased Lasix dose to 40 mg daily Monitor kidney function. Avoid nephrotoxins Continue Lasix. Follow-up echocardiogram: Showed preserved EF with no pertinent abnormalities. Okay to DC from cardiology standpoint. Needs to finish Tamiflu prior to discharge as the nursing facility does not have isolation rooms
--- NOTE | 2024-03-23 14:20 | ESPR_ITS ---
<Statement entered by Janet Limon MD - 03/26/24 09:06> I personally evaluate the patient examined appears to be doing better clinic cardiac alves stable not have any shortness of or chest pain agree with the treatment plan recommendation as documented by Dr. Johnson PGY2 will continue to monitor patient as an outpatient following discharge Documentation for date of: 03/23/24 Subjective Subjective Interval history: Overnight, rapid response was called for low blood pressure. Upon recheck, however patient's blood pressure improved to systolic of 120s, and therefore no intervention was done. Patient blood pressure has been since stable. Heart rate has been 51-105 in last 24 hours. Patient has been stable on 3 L nasal cannula. Patient has been getting his Rew as needed for pain. Patient denies any complaints at this time. Echocardiogram showed normal LV size and function with mild LV hypertrophy. Ejection fraction 60 to 65%, along with moderate LA dilatation. Exam Vital Signs Temp Pulse Resp BP Pulse Ox O2 Del Method O2 Flow Rate 97.8 F 51 L 20 127/63 100 Nasal Cannula 3 03/23/24 12:00 03/23/24 12:36 03/23/24 12:36 03/23/24 12:00 03/23/24 12:36 03/23/24 12:00 03/23/24 12:36 Narrative Exam General Appearance: Pt in NAD laying in bed on 3L NC. HEENT: NC/AT, no scleral icterus, no conjunctival pallor, MMM Lungs:Coarse breath sounds present in all lung lord CVS: RRR, distant heart sounds d/t body habitus, no murmurs or rubs appreciated 2+ bilateral pitting edema up to the knees, no JVD ABD: Soft, non-tender, non-distended, BS + in all 4 quadrants EXT: no deformity/edema/lesions/cyanosis/clubbing, radial pulses 2+ BL, DP pulses 2 + BL SKIN: Skin exam normal without any rashes. Neuro: A&O x 3. No gross neurological deficits. Psych: Appropriate mood and affect Objective Labs 03/23/24 05:24 03/23/24 05:24 Labs: Laboratory Results - last 24 hr 03/23/24 05:24 WBC 6.4 RBC 3.56 L Hgb 10.5 L Hct 34.6 L MCV 97 MCH 29.5 MCHC 30.3 L RDW Std Deviation 58.2 H Plt Count 199 Neut % (Auto) 79 Lymph % (Auto) 10 [place] % (Auto) 8 Eos % (Auto) 3 Baso % (Auto) 0 Neut # (Auto) 5.1 Lymph # (Auto) 0.6 L [place] # (Auto) 0.5 Eos # (Auto) 0.2 Baso # (Auto) 0.0 Immature Gran # (Auto) 0.02 H Absolute Nucleated RBC 0.00 Immature Gran % 0 Nucleated RBC % 0 Sodium 141 Potassium 4.7 D Chloride 99 Carbon Dioxide 32.0 H Anion Gap 10 BUN 31 H Creatinine 1.6 H Estim Creat Clear Calc 56.8 L eGFR 45 L BUN/Creatinine Ratio 19 Glucose 115 H Calculated Osmolality 288 Calcium 8.8 Corrected Calcium 9.0 Phosphorus 3.4 Magnesium 2.2 Total Bilirubin 0.3 AST 35 H ALT 17 Alkaline Phosphatase 54 Total Protein 6.6 Albumin 3.7 Globulin 2.9 Albumin/Globulin Ratio 1.3 Quality Measures Quality Measures none Advance care planning discussed with:: patient Assessment & Plan Assessment Current Active Medications: Generic Name Dose Route Start Last Admin Trade Name Freq PRN Reason Stop Dose Admin Acetaminophen 650 mg 03/20/24 17:08 Acetaminophen 325 Mg Tablet PO 04/19/24 17:07 Q6H PRN Fever >101.5 Acetaminophen 650 mg 03/20/24 17:08 Acetaminophen 325 Mg Tablet PO 04/19/24 17:07 Q6H PRN PAIN SCALE 1-3 (mild Hydrocodone Bitart/Acetaminophen 1 tab 03/20/24 17:22 03/23/24 13:40 Hydrocodone/Apap 5/325 Tablet PO 03/25/24 17:21 1 tab Q6HR PRN Administration Pain 4-10 Albuterol/Ipratropium 3 ml 03/20/24 17:30 03/23/24 12:36 Albuterol/Ipratropium (Duoneb) Rt Jeanie 3 Ml Nebu INH 04/19/24 17:29 3 ml Q6H ADRIAN Administration Apixaban 2.5 mg 03/20/24 21:00 03/23/24 09:06 Apixaban 2.5 Mg Tablet PO 04/19/24 20:59 2.5 mg BID ADRIAN Administration Atorvastatin Calcium 10 mg 03/20/24 21:00 03/22/24 21:35 Atorvastatin Calcium 10 Mg Tablet PO 04/19/24 20:59 10 mg HS ADRIAN Administration Azithromycin 250 mg 03/21/24 09:00 03/23/24 09:06 Azithromycin 250 Mg Tablet PO 03/25/24 06:00 250 mg QDAY ADRIAN Administration Ferrous Sulfate 325 mg 03/22/24 09:00 03/23/24 09:06 Ferrous Sulf 325 Mg Tablet PO 04/21/24 08:59 325 mg QDAY ADRIAN Administration Furosemide 40 mg 03/22/24 21:00 03/22/24 21:33 Furosemide 40 Mg Tablet PO 04/21/24 20:59 40 mg HS ADRIAN Administration Gabapentin 300 mg 03/20/24 22:00 03/23/24 13:35 Gabapentin 300 Mg Capsule PO 04/19/24 21:59 300 mg TID ADRIAN Administration Ceftriaxone Sodium/Dextrose 50 mls @ 100 mls/hr 03/21/24 09:00 03/23/24 09:05 Rocephin/D5w 1gm Iv Premix IV 03/28/24 08:59 100 mls/hr QDAY ADRIAN Administration Lactulose 20 gm 03/20/24 17:08 Lactulose Syrup 20 Gm/30 Ml Udc PO 04/20/24 08:59 QDAY PRN CONSTIPATION Protocol Lisinopril 10 mg 03/21/24 08:30 03/23/24 09:06 Lisinopril 2.5 Mg Tablet PO 04/20/24 08:29 10 mg QDAY ADRIAN Administration Oseltamivir Phosphate 75 mg 03/20/24 21:00 03/23/24 09:06 Oseltamivir 75 Mg Capsule PO 03/25/24 09:01 75 mg BID ADRIAN Administration Venlafaxine HCl 37.5 mg 03/21/24 09:00 03/23/24 09:06 Venlafaxine Xr 37.5 Mg Capcr PO 04/20/24 08:59 37.5 mg QDAY ADRIAN Administration Plan atchanell is a [id number]-year-old male with past medical history significant for A-fib on Eliquis, hyperlipidemia, coronary artery disease status post stent placement and cardiac bypass grafting, history of DVT, possible CHF, morbid obesity, recurrent UTIs with urinary overflow incontinence and bedbound who presented to the ED with shortness of breath and weakness and admitted for acute hypoxic respiratory failure secondary to influenza B pneumonia and CHF exacerbation. Cardiology was consulted for AHRF 2/2 acute CHF exacerbation. #AHHRF 2/2 CHF exacerbation #Afib, likely paroxysmal #Hx of CAD, HTN, HLD Patient presented with severe SOB and generalized weakness. Currently rate controlled. BNP 91. ChadVascore is 3. Last EKG showed A-fib, but has been sinus on telemonitor. Echocardiogram showed normal LV size and function with mild LV hypertrophy. Ejection fraction 60 to 65%, along with moderate LA dilatation. Safe to discharge from cardiology standpoint and follow up outpatient with Dr. Limon. - Continue Lasix 40mg QD with strict I's & O's with fluid restriction of 1500cc ? Continue home Eliquis 2.5 mg BID ? Continue Atorvastatin 10 mg daily ? Continue Lisinopril 20 mg daily #Acute hypoxic respiratory failure in the setting of sepsis and Influenza B PNA #Prerenal AARON #Asymptomatic complicated UTI #BL renal calculi #Overflow incontinence #Chronic anemia, likely iron deficiency #Peripheral neuropathy #AURA versus OHS #Abdominal aortic aneurism Rest of problems as per primary team Patient's plan and care discussed with my attending, Dr. Braxton Johnson MD PGY-2
--- NOTE | 2024-03-23 14:47 | PC.SS ---
Rounding note: patient is pending echo.
--- NOTE | 2024-03-23 15:35 | PD.RESDS ---
Planned Discharge Date 03/23/24 DS: Providers Provider Date of admission: 03/20/24 16:55 Primary care physician: Janet Limon MD Admitting Provider: Sami Olea DO Attending Provider on Admission: Isrrael Retana MD Consults: 03/20/24 19:05 Referral Wound Care Urgent Comment: 03/21/24 02:18 Referral Registered Dietitian Routine Comment: 03/22/24 14:34 Consult to Cardiology Routine Comment: Consulting Provider: Janet Limon 03/22/24 15:10 Referral Physical Therapy Urgent Comment: Physician Instructions: Attending Provider on DC: Isrrael Retana MD Discharging Provider: Isrrael Retana MD DS: Diagnosis Problem List Completed Was Problem List Reviewed/Reconciled?: Yes Hospital Course Hospital Course Hospital course: This is a 73-year-old male with significant past medical history of A-fib on Eliquis, hyperlipidemia, coronary artery disease s/p stent placement and cardiac bypass grafting, history of DVT, possible CHF, morbid obesity, recurrent UTIs with urinary overflow incontinence and bed bound presented with [facility] facility with chief complaint of SOB, generalized weakness and back pain x 2-3 days. The patient received and was admitted to telemetry unit for further management of acute hypoxic respiratory failure secondary to influenza B pneumonia and CHF exacerbation. Continued on LASIX ANTIMICROBIAL therapy. Echocardiogram done showing EF 60-65% with normal LV size/function. PATIENT INSTRUCTIONS: Follow-up with PCP within 1-2 weeks of discharge. Follow-up with cardiology, Dr. Limon within 1 week of discharge. Return to Emergency Room if symptoms persist, worsen, or new symptoms develop. Continue taking medications as prescribed below: ? AMOXICILLIN 500 mg every hours (NEW) ? AZITHROMYCIN 250 mg daily (NEW) ? TAMIFLU 75 mg twice daily (NEW) Continue taking home medications as prescribed by your doctor. ADMISSION DIAGNOSES: Asymptomatic complicated UTI BL renal calculi Overflow incontinence Chronic anemia, likely iron deficiency Peripheral neuropathy AURA versus OHS Abdominal aortic aneurism Afib, likely paroxysmal CAD, HTN, HLD Incidental Findings: Atrophic kidneys with renal cortical thinning and moderate bilateral renal parenchymal scar formation Extensive bilateral renal calculi including large staghorn calculus right kidneyinvolving calyces and right renal pelvis Infrarenal abdominal aortic aneurysm transverse measurement 6.3 x 5.9 cmcompared to 6.2 x [address] abdomen study June 05, 2023 Recommended PCP follow-up Patient case was discussed with attending, Isrrael Retana MD and senior residents Dr. Hinojosa and Dr. Heart. Roderick DO Nicki PGYI Senior Resident Attestation: I discussed with and supervised the actuarial internship physician involved in the care of this patient. I personally saw and examined the patient and discussed the assessment and plan with the entire medicine team, including my attending. I agree with the discharge plan as documented above. Jhony Heart MD PGY2 Internal Medicine Time Spent with Patient Time attestation: Total time spent providing and/or coordinating discharge services: Greater than 35 minutes. Exam Vital Signs Temp Pulse Resp BP Pulse Ox O2 Del Method O2 Flow Rate 97.8 F 51 L 20 127/63 100 Nasal Cannula 3 03/23/24 12:00 03/23/24 12:36 03/23/24 12:36 03/23/24 12:00 03/23/24 12:36 03/23/24 12:00 03/23/24 12:36 Narrative Exam GENERAL: Comfortable adult seen resting comfortably in hospital bed, no acute distress,obede VITALS: All vitals were reviewed and the pulse ox is 98% on room air HEENT: Normocephalic, atraumatic. Pupils are equal and reactive. Oral mucosa is moist. NECK: Supple, nontender, no JVD CHEST: Symmetrical, atraumatic and with equal expansion ,Nontender on palpation CARDIOVASCULAR: Heart regular rhythm & rate. S1/S2. no murmur or gallop rub or extra beats. LUNGS: Bilateral wheezing no laboring tachypnea or wheezing. No intercostal subcostal retraction. No rales and no rhonchi. ABDOMEN: Soft, flat, nontender to palpation, no guarding or rebound tenderness. Active and normal bowel sounds. EXTREMITIES:Moves all 4 extremities,No B/L LE edema. SKIN: Warm and dry, no jaundice or rashes noted. NEURO: Patient is AO x 3, Cranial nerves II through XII grossly intact. There is no focal neurologic deficits noted. PSYCHIATRIC: Patient is in normal mood, cooperative, no SI or HI or hallucinations. Discharge Plan Plan Patient Disposition: Xfer Skilled Nsg Fac (SNF) Patient condition on transfer: Stable Care Plan Goals: Please follow-up with your PCP and wet process assistant head miller Dr. Limon within 1 week of discharge. You have been started on amoxicillin 1 g 3 times daily for 4 days You have also been started on azithromycin 250 mg daily for 2 days Continue with oseltamivir 75 Mg twice daily for 10 days -Continue taking all your other medications as prescribed -Recommended to return back to emergency department if your symptoms persist or does not improve. Prescriptions/Referrals Prescriptions/Med Rec: New oseltamivir [Tamiflu] 75 mg capsule 75 mg PO BID 5 Days Qty: 10 0RF amoxicillin 500 mg capsule 1,000 mg PO Q8H 4 Days Qty: 24 0RF azithromycin 250 mg tablet 250 mg PO QDAY Qty: 2 0RF Continued venlafaxine [Effexor XR] 75 mg Capsule,Extended Release 24hr 75 mg PO QDAY hydrocodone-acetaminophen 5-325 mg Tablet 1 tab PO Q6H PRN (Reason: Pain, Moderate) Eliquis 2.5 mg Tablet 2.5 mg PO BID gabapentin 300 mg capsule 300 mg PO TID furosemide 40 mg tablet 40 mg PO QDAY pravastatin 40 mg tablet 40 mg PO QDAY Referrals: Janet Limon MD [Primary Care Provider] - Patient/Caregiver Discharge Instructions Discharge Activity: as per physical therapy Other Discharge Activity Instructions:: Please follow-up with your PCP and wet process assistant head miller Dr. Limon within 1 week of discharge. You have been started on amoxicillin 1 g 3 times daily for 4 days You have also been started on azithromycin 250 mg daily for 2 days Continue with oseltamivir 75 Mg twice daily for 10 days -Continue taking all your other medications as prescribed -Recommended to return back to emergency department if your symptoms persist or does not improve. Print Language: Nauruan Stand Alone Forms: Angie Award Info., Patient Portal Info Letter Discharge Order Discharge Orders: Discharge (Routine); Ordered 03/23/24 Ordered By: Jhony Heart Quality Discharge Quality Measures VTE prophylaxis Attestestation Attestation Lori reviewed labs, imaging, EKG, home medications and prior available records. Face to face evaluation was performed by me. I have personally examined the patient and discussed assessment and plan with the IM team. I reviewed the resident note and agree with the plan with exceptions as below. Acute hypoxic respiratory failure Influenza A CHF exacerbation, preserved EF AARON on CKD 3A Creatinine slightly increased. Decreased Lasix dose to 40 mg daily Monitor kidney function. Avoid nephrotoxins Continue Lasix. Follow-up echocardiogram: Showed preserved EF with no pertinent abnormalities. Okay to DC from cardiology standpoint. Needs to finish Tamiflu prior to discharge as the nursing facility does not have isolation rooms
--- NOTE | 2024-03-23 16:22 | PC.SS ---
SS update: contacted Renetta at [facility] to confirm if patient is able to return back to the facility today as he has d/c orders. Per Renetta no isolation bed is available, therefore patient has to complete remainder of prescription dosage in house before returning back to the facility. Updated bed side nurse An and attending Dr. Retana to make aware. Both parties verbalized understanding.
[2024-03-23] MEDS: Furosemide 40 MG TABLET PO (22:11)
[2024-03-23] MEDS: ATORVASTATIN CALCIUM 10 MG TABLET PO (22:13)
[2024-03-24] VITALS (12 sets, daily range): BP systolic 127–152; BP diastolic 58–91; PULSE 61–90; RESP 15–30; TEMP 36–36.6; O2SAT 94–100
[2024-03-24] MEDS: ALBUTEROL/IPRATROPIUM (Duoneb) RT SOL 3 ML NEBU INH ×4 (00:40→18:50)
[2024-03-24] MEDS: HYDROcodone/APAP 5/325 TABLET 1 TAB PO ×2 (04:24→21:09)
[2024-03-24] MEDS: GABAPENTIN 300 MG CAPSULE PO ×3 (05:08→21:09)
[2024-03-24] MEDS: cefTRIAXone/D5w 1gm IV premix 50 ML IV (08:17)
[2024-03-24] MEDS: Lisinopril 2.5 MG TABLET 10 MG PO (08:18)
[2024-03-24] MEDS: VENLAFAXINE XR 37.5 MG CAPCR PO (08:18)
[2024-03-24] MEDS: FERROUS SULF 325 MG TABLET PO (08:18)
[2024-03-24] MEDS: APIXABAN 2.5 MG TABLET PO ×2 (08:18→21:09)
[2024-03-24] MEDS: OSELTAMIVIR 75 MG CAPSULE PO ×2 (08:18→21:09)
[2024-03-24] MEDS: AZITHROMYCIN 250 MG TABLET PO (08:18)
--- NOTE | 2024-03-24 12:32 | XR_ITS ---
Examination: Abdomen AP single view Technique: AP portable supine abdomen, single view Exam date and time: March 24, 2024 1608 hours INDICATIONS: Abdominal pain today FINDINGS: Nonobstructive bowel gas pattern Large bilateral renal calculi, extensive staghorn calculus on the right No free air No definite ureteral calculi Prominent osteopenia Moderate to advanced bilateral hip osteoarthritis IMPRESSION: Large bilateral renal calculi, extensive staghorn calculus on the right
--- NOTE | 2024-03-24 14:34 | ESPR_ITS ---
Documentation for date of: 03/24/24 Subjective Subjective Interval history: No acute overnight events. Continued on 2 L nasal cannula, breathing comfortably. Tolerating oral intake without nausea or vomiting, having regular bowel movements. Denies fever, chills, headaches, chest pain, sob, cough, GI or urinary symptoms. Exam Vital Signs Temp Pulse Resp BP Pulse Ox O2 Del Method O2 Flow Rate 97.1 F 66 15 152/85 H 99 Nasal Cannula 2 03/24/24 12:00 03/24/24 12:29 03/24/24 12:29 03/24/24 12:00 03/24/24 12:29 03/24/24 12:03/24/24 12:29 Narrative Exam GENERAL: Obese adult seen resting comfortably in hospital bed, no acute distress VITALS: All vitals were reviewed and the pulse ox is 98% on room air HEENT: Normocephalic, atraumatic. Pupils are equal and reactive. Oral mucosa is moist. NECK: Supple, nontender, no JVD CHEST: Symmetrical, atraumatic and with equal expansion ,Nontender on palpation CARDIOVASCULAR: Heart regular rhythm & rate. S1/S2. no murmur or gallop rub or extra beats. LUNGS: Bilateral wheezing no laboring tachypnea or wheezing. No intercostal subcostal retraction. No rales and no rhonchi. ABDOMEN: Soft, flat, nontender to palpation, no guarding or rebound tenderness. Active and normal bowel sounds. EXTREMITIES:Moves all 4 extremities,No B/L LE edema. SKIN: Warm and dry, no jaundice or rashes noted. NEURO: Patient is AO x 3, Cranial nerves II through XII grossly intact. There is no focal neurologic deficits noted. PSYCHIATRIC: Patient is in normal mood, cooperative, no SI or HI or hallucinations. Objective Labs 03/25/24 05:02 03/25/24 05:02 Quality Measures Quality Measures VTE prophylaxis Advance care planning discussed with:: patient Assessment & Plan Assessment Current Active Medications: Generic Name Dose Route Start Last Admin Trade Name Freq PRN Reason Stop Dose Admin Acetaminophen 650 mg 03/20/24 17:08 Acetaminophen 325 Mg Tablet PO 04/19/24 17:07 Q6H PRN Fever >101.5 Acetaminophen 650 mg 03/20/24 17:08 Acetaminophen 325 Mg Tablet PO 04/19/24 17:07 Q6H PRN PAIN SCALE 1-3 (mild Hydrocodone Bitart/Acetaminophen 1 tab 03/20/24 17:22 03/24/24 04:24 Hydrocodone/Apap 5/325 Tablet PO 03/28/24 17:21 1 tab Q6HR PRN Administration Pain 4-10 Albuterol/Ipratropium 3 ml 03/23/24 19:00 03/24/24 12:26 Albuterol/Ipratropium (Duoneb) Rt Jeanie 3 Ml Nebu INH 04/22/24 18:59 3 ml Q6HRRT ADRIAN Administration Apixaban 2.5 mg 03/20/24 21:00 03/24/24 08:18 Apixaban 2.5 Mg Tablet PO 04/19/24 20:59 2.5 mg BID ADRIAN Administration Atorvastatin Calcium 10 mg 03/20/24 21:00 03/23/24 22:13 Atorvastatin Calcium 10 Mg Tablet PO 04/19/24 20:59 10 mg HS ADRIAN Administration Azithromycin 250 mg 03/21/24 09:00 03/24/24 08:18 Azithromycin 250 Mg Tablet PO 03/25/24 06:00 250 mg QDAY ADRIAN Administration Ferrous Sulfate 325 mg 03/22/24 09:00 03/24/24 08:18 Ferrous Sulf 325 Mg Tablet PO 04/21/24 08:59 325 mg QDAY ADRIAN Administration Furosemide 40 mg 03/22/24 21:00 03/23/24 22:11 Furosemide 40 Mg Tablet PO 04/21/24 20:59 40 mg HS ADRIAN Administration Gabapentin 300 mg 03/20/24 22:00 03/24/24 14:05 Gabapentin 300 Mg Capsule PO 04/19/24 21:59 300 mg TID ADRIAN Administration Ceftriaxone Sodium/Dextrose 50 mls @ 100 mls/hr 03/21/24 09:00 03/24/24 08:17 Rocephin/D5w 1gm Iv Premix IV 03/28/24 08:59 100 mls/hr QDAY ADRIAN Administration Lactulose 20 gm 03/20/24 17:08 Lactulose Syrup 20 Gm/30 Ml Udc PO 04/20/24 08:59 QDAY PRN CONSTIPATION Protocol Lisinopril 10 mg 03/21/24 08:30 03/24/24 08:18 Lisinopril 2.5 Mg Tablet PO 04/20/24 08:29 10 mg QDAY ADRIAN Administration Oseltamivir Phosphate 75 mg 03/20/24 21:00 03/24/24 08:18 Oseltamivir 75 Mg Capsule PO 03/25/24 09:01 75 mg BID ADRIAN Administration Venlafaxine HCl 37.5 mg 03/21/24 09:00 03/24/24 08:18 Venlafaxine Xr 37.5 Mg Capcr PO 04/20/24 08:59 37.5 mg QDAY ADRIAN Administration Plan The patient is a 73-year-old male with significant past medical history of A-fib on Eliquis, hyperlipidemia, coronary artery disease s/p stent placement and cardiac bypass grafting, history of DVT, possible CHF, morbid obesity, recurrent UTIs with urinary overflow incontinence and bed bound presented with [facility] facility with chief complaint of SOB, generalized weakness and back pain x 2-3 days. The patient received and was admitted to telemetry unit for further management of acute hypoxic respiratory failure secondary to influenza B pneumonia and CHF exacerbation. Echocardiogram showed EF 60-65%. Acute hypoxic respiratory failure 2/2- improving Sepsis (resolved) 2/2 Influenza B pneumonia CHF exacerbation Presented with SOB, generalized weakness and back pain. Septic admission with 3 /4 SIRS positive with fever, tachycardia and tachypnea, and positive influenza. Admission radiography showed moderate CHF, small left pleural effusion and left base pneumonia. Adequately fluid resuscitated, continued on ANTIBIOTICS and TAMIFLU. Sepsis resolved. Currently on 4 L NC. Denies chest pain or shortness of breath. No leukocytosis, afebrile. Patient has incontinence, no urine output recorded. Per nurse patient diuresing well otherwise. No signs of overload on exam. MRSA negative. 48 blood culture negative. Sputum culture no growth. ? Continue CEFTRIAXONE (1/5 to [present]) ? Continue AZITHROMYCIN (1/5 to [present]) ? Continue TAMIFLU (/5 to [present]) ? Continue LASIX 40 mg PO daily ? Strict MARIA ESTHER's, fluid restriction 1500 cc daily ? Pending sputum culture, negative still ? Pending echocardiogram Prerenal AARON In settings of CHF exacerbation. Admission CR 1.5 around baseline. Continues fluctuating between 1.2 and 1.5, likely as a result of change in fluid status and urine output. GFR around 40?50s. ? Renally dose meds, avoid overdiuresis and NEPHROTOXINS ? Change LASIX to orally as above ? Daily CMP Asymptomatic complicated UTI BL renal calculi Overflow incontinence UA positive for turbid urine, 1+ protein, 2+ blood, leukocyte esterase, RBC 118, WBC 79 with rare bacteria, atrophic kidneys with renal cortical thinning and moderate bilateral renal parenchymal eschar formation, extensive bilateral renal calculi including large staghorn calculus right kidney involving calyces and right renal pelvis, no significant hydronephrosis ? ANTIBIOTICS as above ? Pending urine culture, currently negative. ? Recommended outpatient urology follow-up Chronic anemia, likely iron deficiency Hgb around 10?11. No sign of active bleed. Workup indicated low iron storage, borderline low B12 and normal folate. ? Holding iron supplement in settings of active infection ? Recommended outpatient follow-up, consider starting iron once infection resolves Peripheral neuropathy ? Continued home GABAPENTIN 300 mg TID AURA versus OHS HCO3 35.1. Baby habitus high risk for AURA versus OHS ? Continue BiPAP at night ? Recommended sleep study outpatient Abdominal aortic aneurism CT abd/ pel: Infrarenal abdominal aortic aneurysm transverse measurement 6.3 x 5.9 cm compared to 6.2 x 5.[address] abdomen from June 05, 2023. ? Continue blood pressure control. ? Recommended outpatient follow-up with vascular surgery Afib, likely paroxysmal CAD, HTN, HLD Currently rate controlled. BP within normal limits, HR in 70s. ? Continued home ELIQUIS 2.5 mg BID ? Continue ATORVASTATIN 10 mg daily ? Continue LISINOPRIL 20 mg daily Health maintenance Diet: Cardiac, fluid restriction 1500 cc GI prophylaxis: Not indicated DVT prophylaxis: ELIQUIS Antibiotics: CEFTRIAXONE, AZITHROMYCIN, TAMIFLU CODE STATUS: Full code Disposition: Pending [facility] once TAMIFLU course complete, 03/25/2024 Patient case was discussed with attending, Dr. Benjamin Vitale MD and senior residents Dr. Hinojosa and Dr. Heart. Roderick Caceres, DO PGYI Senior Resident Attestation: The patient was resting comfortably in his bed this morning. He reported doing well. He was saturating 94 to 96% 2 L NC. His vitals were stable. We will continue with Tamiflu along with ceftriaxone and azithromycin until tomorrow, and after that the patient will be discharged to a SNF with amoxicillin thousand Mg daily for more 2 days. I discussed with and supervised the financial internship physician involved in the care of this patient. I personally saw and examined the patient and discussed the assessment and plan with the entire medicine team, including my attending. I agree with the assessment and plan as documented above. Jhony Heart MD PGY2 Internal Medicine Attending Provider Attestation/Addendum I have examined the patient, reviewed labs and imaging findings, discussed the case with the resident(s), and reviewed entered orders. I agree with the plan of care as outlined in this note, with these additional summaries/recommendations: Patient seen at bedside. No acute overnight events. Patient was planned for discharge yesterday although pending insurance authorization for SNF. Continue Tamiflu for influenza B. Continue antibiotics for superimposed bacterial pneumonia most likely secondary to gram-negative rods. Patient continues to require minimal oxygen on 2 L nasal cannula. Creatinine mildly increasing and we will continue to monitor renal function until discharge with outpatient renal panel in 1 week. Patient has extensive bilateral renal calculi and will need close outpatient follow-up with urology. Abdominal aortic aneurysm noted and patient will need close outpatient follow-up with vascular surgery/cardiology for surgical intervention. Continue home Eliquis, atorvastatin, lisinopril for CAD/hypertension/hyperlipidemia. Dr. Vitale
--- NOTE | 2024-03-24 15:21 | PC.SS ---
Rounding note: one more day, pending completion of prescription dosage to return to SNF.
[2024-03-24] MEDS: CALCIUM CARBONATE 600 MG TABLET PO (18:12)
[2024-03-24] MEDS: PANTOPRAZOLE 40 MG TABLET PO (18:12)
[2024-03-24] MEDS: ATORVASTATIN CALCIUM 10 MG TABLET PO (21:09)
[2024-03-24] MEDS: Furosemide 40 MG TABLET PO (21:09)
[2024-03-25] VITALS (12 sets, daily range): BP systolic 130–142; BP diastolic 68–90; PULSE 72–102; RESP 18–27; TEMP 36–36.6; O2SAT 92–100
[2024-03-25] MEDS: ALBUTEROL/IPRATROPIUM (Duoneb) RT SOL 3 ML NEBU INH ×4 (00:33→18:51)
[2024-03-25] MEDS: HYDROcodone/APAP 5/325 TABLET 1 TAB PO (05:05)
[2024-03-25] MEDS: GABAPENTIN 300 MG CAPSULE PO ×3 (05:06→21:10)
[2024-03-25 06:20] LABS: Basophils % (Auto) 0 % (0-2.5); Eosinophils # (Auto) 0.2 Thou/mm3 (0.0-0.5); Eosinophils % (Auto) 2 % (0-10); Hematocrit 36.1 % (41.0-53.0); Hemoglobin 10.9 g/dL (13.5-16.0); Immature Granulocytes % (Auto) 1 % (0-0); Immature Granulocytes Auto 0.03 Thou/mm3 (0.00-0.00); Lymphocytes # (Auto) 0.7 Thou/mm3 (1.0-4.8); Lymphocytes % (Auto) 11 % (10-50); Mean Corpuscular HGB Conc 30.2 g/dl (31.0-37.0); Mean Corpuscular Hemoglobin 29.3 pg (25.0-35.0); Mean Corpuscular Volume 97 fL (80-100); Monocytes # (Auto) 0.5 Thou/mm3 (0.0-0.8); Monocytes % (Auto) 7 % (0-12); Neutrophils # (Auto) 5.2 Thou/mm3 (1.8-7.7); Neutrophils % (Auto) 79 % (37-80); Nucleated Red Blood Cell % 0 /100 WBC (0); Platelet Count 192 Thou/mm3 (140-440); RDW Standard Deviation 55.8 fL (35.1-43.9); Red Blood Count 3.72 Miln/mm3 (4.50-5.90); White Blood Count 6.6 Thou/mm3 (3.8-10.6)
[2024-03-25 06:46] LABS: Alanine Aminotransferase 17 U/L (10-49); Albumin, Serum 3.9 gm/dL (3.4-4.8); Albumin/Globulin Ratio 1.3 (1.2-2.2); Alkaline Phosphatase 61 U/L (46-116); Anion Gap 4 (7-16); Aspartate Amino Transferase 22 U/L (0-34); BUN/Creatinine Ratio 23 Ratio (12-20); Bilirubin,Total 0.5 mg/dL (0.3-1.2); Blood Urea Nitrogen 27 mg/dL (9-23); Calcium 9.8 mg/dL (8.3-10.6); Calcium (Corrected) 9.9 mg/dL (8.5-10.1); Carbon Dioxide 38.9 mMol/L (20.0-31.0); Chloride 99 mMol/L (98-107); Creatinine (Component) 1.2 mg/dL (0.6-1.3); Estimated Creatinine Clearance 74.3 mL/min (>60); Globulin 2.9 gm/dL (2.3-3.5); Glucose 114 mg/dL (74-106); Magnesium 2.1 mg/dL (1.6-2.6); Osmolality,Calculated 289 (275-295); Phosphorous 2.2 mg/dL (2.4-5.1); Potassium 4.2 mMol/L (3.4-5.1); Sodium 142 mMol/L (136-145); Total Protein 6.8 gm/dL (5.7-8.2); eGFR > 60 See Note
[2024-03-25] MEDS: cefTRIAXone/D5w 1gm IV premix 50 ML IV (08:31)
[2024-03-25] MEDS: APIXABAN 2.5 MG TABLET PO ×2 (08:31→21:09)
[2024-03-25] MEDS: FERROUS SULF 325 MG TABLET PO (08:32)
[2024-03-25] MEDS: Lisinopril 2.5 MG TABLET 10 MG PO (08:32)
[2024-03-25] MEDS: VENLAFAXINE XR 37.5 MG CAPCR PO (08:32)
[2024-03-25] MEDS: OSELTAMIVIR 75 MG CAPSULE PO (08:33)
[2024-03-25] MEDS: NAPH,KPH MBDB 1 PACKET (1.5 GM) PO (08:55)
--- NOTE | 2024-03-25 09:41 | PC.SS ---
Addendum entered by MALAIKA Egan 03/25/24 11:46: Per bed side nurse, patient received last dosage of tamiflu this morning about [id number]. Patient able to return back tomorrow after 9am per SNF facility as they are requesting 24hrs after completion of prescription dosage. Bed side nurse aware. Notified attending Dr. Vitale. Addendum entered by MALAIKA Egan 03/25/24 11:03: Renetta at [facility] informs patient is eligible to return 24hrs after after completion of prescription dosage. Original Note: SS follow up: spoke with Renetta at [facility] to identify if patient is able to return to [facility] today. Renetta informs she will speak to her DON as patient may require to remain in house 24hrs after completion of prescription dosage. Renetta to notify SS.
--- NOTE | 2024-03-25 19:59 | ESPR_ITS ---
Documentation for date of: 03/25/24 Subjective Subjective Interval history: The patient reported doing well. Denied any chest pain or SOB. Saturating 97% on 1L NC. He completed his 5 days course of tamiflu, but the SNF will accept the patient 24 hours after the last dose of tamiflu. He will be discharge tomorrow. Exam Vital Signs Temp Pulse Resp BP Pulse Ox O2 Del Method O2 Flow Rate 96.8 F 85 22 H 138/75 H 98 Nasal Cannula 1 03/25/24 16:00 03/25/24 18:54 03/25/24 18:54 03/25/24 16:00 03/25/24 18:54 03/25/24 16:00 03/25/24 18:54 Narrative Exam GENERAL: Obese adult seen resting comfortably in hospital bed, no acute distress VITALS: All vitals were reviewed and the pulse ox is 97% on 1L NC HEENT: Normocephalic, atraumatic. Pupils are equal and reactive. Oral mucosa is moist. NECK: Supple, nontender, no JVD CHEST: Symmetrical, atraumatic and with equal expansion ,Nontender on palpation CARDIOVASCULAR: Heart regular rhythm & rate. S1/S2. no murmur or gallop rub or extra beats. LUNGS: Bilateral wheezing no laboring tachypnea or wheezing. No intercostal subcostal retraction. No rales and no rhonchi. ABDOMEN: Soft, flat, nontender to palpation, no guarding or rebound tenderness. Active and normal bowel sounds. EXTREMITIES:Moves all 4 extremities,No B/L LE edema. SKIN: Warm and dry, no jaundice or rashes noted. NEURO: Patient is AO x 3, Cranial nerves II through XII grossly intact. There is no focal neurologic deficits noted. PSYCHIATRIC: Patient is in normal mood, cooperative, no SI or HI or hallucinations. Objective Labs 03/25/24 05:02 03/25/24 05:02 Labs: Laboratory Results - last 24 hr 03/25/24 05:02 WBC 6.6 RBC 3.72 L Hgb 10.9 L Hct 36.1 L MCV 97 MCH 29.3 MCHC 30.2 L RDW Std Deviation 55.8 H Plt Count 192 Neut % (Auto) 79 Lymph % (Auto) 11 [place] % (Auto) 7 Eos % (Auto) 2 Baso % (Auto) 0 Neut # (Auto) 5.2 Lymph # (Auto) 0.7 L [place] # (Auto) 0.5 Eos # (Auto) 0.2 Baso # (Auto) 0.0 Immature Gran # (Auto) 0.03 H Absolute Nucleated RBC 0.00 Immature Gran % 1 H Nucleated RBC % 0 Sodium 142 Potassium 4.2 D Chloride 99 Carbon Dioxide 38.9 H Anion Gap 4 L BUN 27 H Creatinine 1.2 Estim Creat Clear Calc 74.3 eGFR > 60 BUN/Creatinine Ratio 23 H Glucose 114 H Calculated Osmolality 289 Calcium 9.8 Corrected Calcium 9.9 Phosphorus 2.2 L Magnesium 2.1 Total Bilirubin 0.5 AST 22 ALT 17 Alkaline Phosphatase 61 Total Protein 6.8 Albumin 3.9 Globulin 2.9 Albumin/Globulin Ratio 1.3 Quality Measures Quality Measures VTE prophylaxis Advance care planning discussed with:: patient Assessment & Plan Assessment Current Active Medications: Generic Name Dose Route Start Last Admin Trade Name Freq PRN Reason Stop Dose Admin Acetaminophen 650 mg 03/20/24 17:08 Acetaminophen 325 Mg Tablet PO 04/19/24 17:07 Q6H PRN Fever >101.5 Acetaminophen 650 mg 03/20/24 17:08 Acetaminophen 325 Mg Tablet PO 04/19/24 17:07 Q6H PRN PAIN SCALE 1-3 (mild Albuterol/Ipratropium 3 ml 03/23/24 19:00 03/25/24 18:51 Albuterol/Ipratropium (Duoneb) Rt Jeanie 3 Ml Nebu INH 04/22/24 18:59 3 ml Q6HRRT ADRIAN Administration Apixaban 2.5 mg 03/20/24 21:00 03/25/24 08:31 Apixaban 2.5 Mg Tablet PO 04/19/24 20:59 2.5 mg BID ADRIAN Administration Atorvastatin Calcium 10 mg 03/20/24 21:00 03/24/24 21:09 Atorvastatin Calcium 10 Mg Tablet PO 04/19/24 20:59 10 mg HS ADRIAN Administration Ferrous Sulfate 325 mg 03/22/24 09:00 03/25/24 08:32 Ferrous Sulf 325 Mg Tablet PO 04/21/24 08:59 325 mg QDAY ADRIAN Administration Furosemide 40 mg 03/22/24 21:00 03/24/24 21:09 Furosemide 40 Mg Tablet PO 04/21/24 20:59 40 mg HS ADRIAN Administration Gabapentin 300 mg 03/20/24 22:00 03/25/24 14:49 Gabapentin 300 Mg Capsule PO 04/19/24 21:59 300 mg TID ADRIAN Administration Ceftriaxone Sodium/Dextrose 50 mls @ 100 mls/hr 03/21/24 09:00 03/25/24 08:31 Rocephin/D5w 1gm Iv Premix IV 03/28/24 08:59 100 mls/hr QDAY ADRIAN Administration Lactulose 20 gm 03/20/24 17:08 Lactulose Syrup 20 Gm/30 Ml Udc PO 04/20/24 08:59 QDAY PRN CONSTIPATION Protocol Lisinopril 10 mg 03/21/24 08:30 03/25/24 08:32 Lisinopril 2.5 Mg Tablet PO 04/20/24 08:29 10 mg QDAY ADRIAN Administration Venlafaxine HCl 37.5 mg 03/21/24 09:00 03/25/24 08:32 Venlafaxine Xr 37.5 Mg Capcr PO 04/20/24 08:59 37.5 mg QDAY ADRIAN Administration Plan The patient is a 73-year-old male with significant past medical history of A-fib on Eliquis, hyperlipidemia, coronary artery disease s/p stent placement and cardiac bypass grafting, history of DVT, possible CHF, morbid obesity, recurrent UTIs with urinary overflow incontinence and bed bound [facility] with [facility] with chief complaint of SOB, generalized weakness and back pain x 2-3 days. The patient received and was admitted to telemetry unit for further management of acute hypoxic respiratory failure secondary to influenza B pneumonia and CHF exacerbation. Echocardiogram showed EF 60-65%. Acute hypoxic respiratory failure 2/2- improving Sepsis (resolved) 2/2 Influenza B pneumonia CHF exacerbation Presented with SOB, generalized weakness and back pain. Septic admission with 3 /4 SIRS positive with fever, tachycardia and tachypnea, and positive influenza. Admission radiography showed moderate CHF, small left pleural effusion and left base pneumonia. Adequately fluid resuscitated, continued on ANTIBIOTICS and TAMIFLU. Sepsis resolved. Currently on 4 L NC. Denies chest pain or shortness of breath. No leukocytosis, afebrile. Patient has incontinence, no urine output recorded. Per nurse patient diuresing well otherwise. No signs of overload on exam. MRSA negative. 48 blood culture negative. Sputum culture no growth. ? Continue CEFTRIAXONE (03/21 to [present]) ? Continue AZITHROMYCIN (03/21 to [present]) ? Continue TAMIFLU (03/21 to [present]) ? Continue LASIX 40 mg PO daily ? Strict MARIA ESTHER's, fluid restriction 1500 cc daily ? Pending sputum culture, negative Prerenal AARON, Improved In settings of CHF exacerbation. Admission CR 1.5 around baseline. Continues fluctuating between 1.2 and 1.5, likely as a result of change in fluid status and urine output. GFR around 40?50s. ? Renally dose meds, avoid overdiuresis and NEPHROTOXINS ? Change LASIX to orally as above ? Daily CMP Asymptomatic complicated UTI BL renal calculi Overflow incontinence UA positive for turbid urine, 1+ protein, 2+ blood, leukocyte esterase, RBC 118, WBC 79 with rare bacteria, atrophic kidneys with renal cortical thinning and moderate bilateral renal parenchymal eschar formation, extensive bilateral renal calculi including large staghorn calculus right kidney involving calyces and right renal pelvis, no significant hydronephrosis ? ANTIBIOTICS as above ? Pending urine culture, currently negative. ? Recommended outpatient urology follow-up Chronic anemia, likely iron deficiency Hgb around 10?11. No sign of active bleed. Workup indicated low iron storage, borderline low B12 and normal folate. ? On iron supplement ? Recommended outpatient follow-up, consider starting iron once infection resolves Peripheral neuropathy ? Continued home GABAPENTIN 300 mg TID AURA versus OHS HCO3 35.1. Baby habitus high risk for AURA versus OHS ? Continue BiPAP at night ? Recommended sleep study outpatient Abdominal aortic aneurism CT abd/ pel: Infrarenal abdominal aortic aneurysm transverse measurement 6.3 x 5.9 cm compared to 6.2 x 5.[address] abdomen from June 05, 2023. ? Continue blood pressure control. ? Recommended outpatient follow-up with vascular surgery Afib, likely paroxysmal CAD, HTN, HLD Currently rate controlled. BP within normal limits, HR in 70s. ? Continued home ELIQUIS 2.5 mg BID ? Continue ATORVASTATIN 10 mg daily ? Continue LISINOPRIL 20 mg daily Health maintenance Diet: Cardiac, fluid restriction 1500 cc GI prophylaxis: Not indicated DVT prophylaxis: ELIQUIS Antibiotics: CEFTRIAXONE CODE STATUS: Full code Disposition: Pending SNF once TAMIFLU course complete, 03/25/2024 The case was discussed with my attending MD Jhony Bernard MD PGY2 Internal Medicine Attending Provider Attestation/Addendum I have examined the patient, reviewed labs and imaging findings, discussed the case with the resident(s), and reviewed entered orders. I agree with the plan of care as outlined in this note, with these additional summaries/recommendations: Patient seen at bedside. No acute overnight events. Patient has no new symptoms to report today. Patient was planned for discharge although custodial stated patient requires an additional day of isolation for flu until patient can be accepted back. Continue Tamiflu for influenza B. Continue antibiotics for superimposed bacterial pneumonia most likely secondary to gram- negative rods. Patient continues to require minimal oxygen on 2 L nasal cannula. Creatinine mildly increasing and we will continue to monitor renal function until discharge with outpatient renal panel in 1 week. Patient has extensive bilateral renal calculi and will need close outpatient follow-up with urology. Abdominal aortic aneurysm noted and patient will need close outpatient follow-up with vascular surgery/cardiology for surgical intervention. Continue home Eliquis, atorvastatin, lisinopril for CAD/hypertension/hyperlipidemia. Dr. Vitale
[2024-03-25] MEDS: Furosemide 40 MG TABLET PO (21:09)
[2024-03-25] MEDS: ATORVASTATIN CALCIUM 10 MG TABLET PO (21:09)
[2024-03-26] VITALS (10 sets, daily range): BP systolic 147–179; BP diastolic 57–97; PULSE 68–91; RESP 17–26; TEMP 36.2–36.9; O2SAT 89–99
[2024-03-26] MEDS: ACETAMINOPHEN 325 MG TABLET 650 MG PO (00:37)
[2024-03-26] MEDS: QUEtiapine FUMARATE 25 MG TABLET PO (03:24)
--- NOTE | 2024-03-26 03:26 | PC.NURSE ---
Patient appears more restless, has not slept, yelling random things, confused at baseline. Called Dr. Ibanez regarding this patient behavior, new orders received.
--- NOTE | 2024-03-26 05:36 | PC.NURSE ---
Addendum entered by Maribel Godoy RN 03/26/24 06:15: patient also grabbing the call light and moving in bed, hitting the rails of the bed, causing him to develop a skin tear on his right arm. Original Note: patient more restless, trying to get out of bed, appears more confused, notified Dr. Maldonado, per doctor will com up to see the patient.
--- NOTE | 2024-03-26 05:40 | PC.NURSE ---
notified Dr. Maldonado regarding patient refusing his blood draw for morning labs.
[2024-03-26] MEDS: HALOPERIDOL LACT INJ 5 MG/ML VIAL 2.5 MG IV (05:47)
--- NOTE | 2024-03-26 05:47 | PC.NURSE ---
Dr. Maldonado at bedside to assess the patient.
[2024-03-26] MEDS: ALBUTEROL/IPRATROPIUM (Duoneb) RT SOL 3 ML NEBU INH ×3 (06:03→19:45)
--- NOTE | 2024-03-26 08:31 | PC.SS ---
Addendum entered by MALAIKA Egan 03/26/24 08:48: SS update: patient not ready to d/c, per bed side nurse, updated Renetta at [facility] to cancel transport. Addendum entered by MALAIKA Egan 03/26/24 08:45: [facility] confirms fiber picker of patient in 30mins. Notified community health worker to inform bed side nurse. Addendum entered by MALAIKA Egan 03/26/24 08:43: Spoke with patient's nephew, Vel Lara to inform that the patient will return to [facility] today. Provided [facility] phone/address to Vel. Original Note: SS follow up: Patient to d/c back to [facility] today. Contacted Renetta at [facility] to identify if they are able to transport the patient to return back today. Renetta informed they would know later this morning if transport is available for the patient.
--- NOTE | 2024-03-26 08:45 | PC.NURSE ---
Dr notified that patient has increased confusion, worsening SOB and diminished lung sound to left side. Unable to arouse patient enough for oral medication
[2024-03-26] MEDS: cefTRIAXone/D5w 1gm IV premix 50 ML IV (08:51)
--- NOTE | 2024-03-26 08:51 | XR_ITS ---
Examination: AP chest single view TECHNIQUE: AP portable sitting chest single view Exam date and time: March 26, 2024 at 0924 hours Comparison March 20, 2024 INDICATIONS: Coughing congestion shortness of breath today. FINDINGS: Mild CHF Mild enlargement cardiac contour. CABG. Prominent vascular congestion with pulmonary edema No aspiration pneumonia IMPRESSION: Mild CHF No aspiration pneumonia
[2024-03-26 09:23] LABS: Basophils % (Auto) 0 % (0-2.5); Eosinophils % (Auto) 0 % (0-10); Hematocrit 36.3 % (41.0-53.0); Hemoglobin 11.1 g/dL (13.5-16.0); Immature Granulocytes % (Auto) 1 % (0-0); Immature Granulocytes Auto 0.06 Thou/mm3 (0.00-0.00); Lymphocytes # (Auto) 0.6 Thou/mm3 (1.0-4.8); Lymphocytes % (Auto) 6 % (10-50); Mean Corpuscular HGB Conc 30.6 g/dl (31.0-37.0); Mean Corpuscular Hemoglobin 29.2 pg (25.0-35.0); Mean Corpuscular Volume 96 fL (80-100); Monocytes # (Auto) 0.5 Thou/mm3 (0.0-0.8); Monocytes % (Auto) 6 % (0-12); Neutrophils # (Auto) 7.7 Thou/mm3 (1.8-7.7); Neutrophils % (Auto) 87 % (37-80); Nucleated Red Blood Cell % 0 /100 WBC (0); Platelet Count 225 Thou/mm3 (140-440); RDW Standard Deviation 54.7 fL (35.1-43.9); White Blood Count 8.9 Thou/mm3 (3.8-10.6)
[2024-03-26 09:47] LABS: Alanine Aminotransferase 36 U/L (10-49); Albumin/Globulin Ratio 1.3 (1.2-2.2); Alkaline Phosphatase 65 U/L (46-116); Anion Gap 4 (7-16); Aspartate Amino Transferase 37 U/L (0-34); BUN/Creatinine Ratio 19 Ratio (12-20); Bilirubin,Total 0.6 mg/dL (0.3-1.2); Blood Urea Nitrogen 25 mg/dL (9-23); Calcium 9.9 mg/dL (8.3-10.6); Calcium (Corrected) 9.9 mg/dL (8.5-10.1); Carbon Dioxide 39.1 mMol/L (20.0-31.0); Chloride 98 mMol/L (98-107); Creatinine (Component) 1.3 mg/dL (0.6-1.3); Estimated Creatinine Clearance 68.7 mL/min (>60); Globulin 3.1 gm/dL (2.3-3.5); Glucose 144 mg/dL (74-106); Magnesium 2.2 mg/dL (1.6-2.6); Osmolality,Calculated 288 (275-295); Phosphorous 1.7 mg/dL (2.4-5.1); Potassium 4.4 mMol/L (3.4-5.1); Sodium 141 mMol/L (136-145); Total Protein 7.1 gm/dL (5.7-8.2); eGFR 57 See Note
--- NOTE | 2024-03-26 10:30 | PC.NURSE ---
New order for oral medication placed. Notified MD that patient is still unable to take oral medication. Pt has had his eyes pinched closed with tremors and shallow breathing. Upon trying to wake him from this state, he may open his eyes for a few seconds, then pinches them closed again. MD made aware
[2024-03-26 10:38] LABS: Base Excess 14 (-3-3); HCO3 41 mEq/L (20-26); Inspired O2, VO2 Liters 1 L/min; O2 Saturation 95 % (91-98); PCO2 65 mmHg (32.0-48.0); PO2 73 mmHg (83-108); pH, Arterial 7.42 (7.35-7.45)
[2024-03-26 10:39] LABS: Allen Test Performed/OK; Puncture Site Left Femoral
[2024-03-26 10:59] LABS: Ammonia 27 uMol/L (11-32)
[2024-03-26] MEDS: ACETAzolaMIDE SOD 250 MG in SODIUM CHLORIDE 0.9% 50 ML 100 MG IV (12:18)
--- NOTE | 2024-03-26 14:45 | PC.SS ---
Rounding note: patient not ready for discharge due to encephalopathy, altered. Updated Renetta at [facility].
--- NOTE | 2024-03-26 16:24 | ESPR_ITS ---
Documentation for date of: 03/26/24 Subjective Subjective Interval history: The patient was interviewed and examined at the bedside this morning. He was lethargic, and difficult to arouse. Overnight, patient was given 2.5 mg of haloperidol as he was agitated. Exam Vital Signs Temp Pulse Resp BP Pulse Ox O2 Del Method O2 Flow Rate 97.6 F 73 18 179/97 H 97 Nasal Cannula 1 03/26/24 12:00 03/26/24 13:00 03/26/24 13:00 03/26/24 12:00 03/26/24 13:00 03/26/24 12:00 03/26/24 13:00 Narrative Exam GENERAL: Obese adult seen resting comfortably in hospital bed, no acute distress, but difficult to arouse VITALS: All vitals were reviewed and the pulse ox is 97% on 1L NC HEENT: Normocephalic, atraumatic. Pupils are equal and reactive. Oral mucosa is moist. NECK: Supple, nontender, no JVD CHEST: Symmetrical, atraumatic and with equal expansion ,Nontender on palpation CARDIOVASCULAR: Heart regular rhythm & rate. S1/S2. no murmur or gallop rub or extra beats. LUNGS: Decreased breath sounds on left upper field, no laboring tachypnea or wheezing. No intercostal subcostal retraction. No rales and no rhonchi. ABDOMEN: Soft, flat, nontender to palpation, no guarding or rebound tenderness. Active and normal bowel sounds. EXTREMITIES:Moves all 4 extremities,No B/L LE edema. SKIN: Warm and dry, no jaundice or rashes noted. NEURO: Patient is difficult to arouse, unable to obtain Objective Labs 03/26/24 09:00 03/26/24 09:00 Labs: Laboratory Results - last 24 hr 03/26/24 03/26/24 03/26/24 09:00 10:20 10:32 WBC 8.9 RBC 3.80 L Hgb 11.1 L Hct 36.3 L MCV 96 MCH 29.2 MCHC 30.6 L RDW Std Deviation 54.7 H Plt Count 225 D Neut % (Auto) 87 H Lymph % (Auto) 6 L Emmet % (Auto) 6 Eos % (Auto) 0 Baso % (Auto) 0 Neut # (Auto) 7.7 Lymph # (Auto) 0.6 L Emmet # (Auto) 0.5 Eos # (Auto) 0.0 Baso # (Auto) 0.0 Immature Gran # (Auto) 0.06 H Absolute Nucleated RBC 0.00 Immature Gran % 1 H Nucleated RBC % 0 Puncture Site Left Femoral ABG pH 7.42 ABG pCO2 65 H ABG pO2 73 L ABG HCO3 41 H ABG O2 Saturation 95 ABG Base Excess 14 H Oxygen Liter Flow 1 Sodium 141 Potassium 4.4 Chloride 98 Carbon Dioxide 39.1 H Anion Gap 4 L BUN 25 H Creatinine 1.3 Estim Creat Clear Calc 68.7 eGFR 57 L BUN/Creatinine Ratio 19 Glucose 144 H Calculated Osmolality 288 Calcium 9.9 Corrected Calcium 9.9 Phosphorus 1.7 L Magnesium 2.2 Total Bilirubin 0.6 AST 37 H ALT 36 Alkaline Phosphatase 65 Ammonia 27 Total Protein 7.1 Albumin 4.0 Globulin 3.1 Albumin/Globulin Ratio 1.3 ABG Interpretation ABG results: 03/26/24 10:32 ABG pH 7.42 ABG pCO2 65 H ABG pO2 73 L ABG HCO3 41 H ABG O2 Saturation 95 ABG Base Excess 14 H Quality Measures Quality Measures VTE prophylaxis Advance care planning discussed with:: other Assessment & Plan Assessment Current Active Medications: Generic Name Dose Route Start Last Admin Trade Name Freq PRN Reason Stop Dose Admin Acetaminophen 650 mg 03/20/24 17:08 Acetaminophen 325 Mg Tablet PO 04/19/24 17:07 Q6H PRN Fever >101.5 Acetaminophen 650 mg 03/20/24 17:08 03/26/24 00:37 Acetaminophen 325 Mg Tablet PO 04/19/24 17:07 650 mg Q6H PRN Administration PAIN SCALE 1-3 (mild Albuterol/Ipratropium 3 ml 03/23/24 19:00 03/26/24 12:57 Albuterol/Ipratropium (Duoneb) Rt Jeanie 3 Ml Nebu INH 04/22/24 18:59 3 ml Q6HRRT ADRIAN Administration Apixaban 2.5 mg 03/20/24 21:00 03/26/24 12:34 Apixaban 2.5 Mg Tablet PO 04/19/24 20:59 Not Given BID ADRIAN Atorvastatin Calcium 10 mg 03/20/24 21:00 03/25/24 21:09 Atorvastatin Calcium 10 Mg Tablet PO 04/19/24 20:59 10 mg HS ADRIAN Administration Ferrous Sulfate 325 mg 03/22/24 09:00 03/26/24 12:34 Ferrous Sulf 325 Mg Tablet PO 04/21/24 08:59 Not Given QDAY ADRIAN Gabapentin 300 mg 03/20/24 22:00 03/26/24 13:17 Gabapentin 300 Mg Capsule PO 04/19/24 21:59 Not Given TID ADRIAN Ceftriaxone Sodium/Dextrose 50 mls @ 100 mls/hr 03/21/24 09:00 03/26/24 08:51 Rocephin/D5w 1gm Iv Premix IV 03/28/24 08:59 100 mls/hr QDAY ADRIAN Administration Lactulose 20 gm 03/20/24 17:08 Lactulose Syrup 20 Gm/30 Ml Udc PO 04/20/24 08:59 QDAY PRN CONSTIPATION Protocol Lisinopril 10 mg 03/21/24 08:30 03/26/24 12:34 Lisinopril 2.5 Mg Tablet PO 04/20/24 08:29 Not Given QDAY ADRIAN Venlafaxine HCl 37.5 mg 03/21/24 09:00 03/26/24 12:34 Venlafaxine Xr 37.5 Mg Capcr PO 04/20/24 08:59 Not Given QDAY ADRIAN Plan The patient is a 73-year-old male with significant past medical history of A-fib on Eliquis, hyperlipidemia, coronary artery disease s/p stent placement and cardiac bypass grafting, history of DVT, possible CHF, morbid obesity, recurrent UTIs with urinary overflow incontinence and bed bound presented with [facility] facility with chief complaint of SOB, generalized weakness and back pain x 2-3 days. The patient received and was admitted to telemetry unit for further management of acute hypoxic respiratory failure secondary to influenza B pneumonia and CHF exacerbation. Echocardiogram showed EF 60-65%. #Acute metabolic encephalopathy 2/2 #Contraction alkalosis in the setting of excessive diuretics, and #Respiratory acidosis in the setting of OHS and AURA ABG was significant for pH 7.42, pCO2 65, and bicarb 41 -Patient was given Diamox 250 Mg IV x 1 -Stopped diuretics -Will consider CPAP when his mentation is stable Acute hypoxic respiratory failure 2/2- improving Sepsis (resolved) 2/2 Influenza B pneumonia CHF exacerbation Presented with SOB, generalized weakness and back pain. Septic admission with 3 /4 SIRS positive with fever, tachycardia and tachypnea, and positive influenza. Admission radiography showed moderate CHF, small left pleural effusion and left base pneumonia. Adequately fluid resuscitated, continued on ANTIBIOTICS and TAMIFLU. Sepsis resolved. Currently on 4 L NC. Denies chest pain or shortness of breath. No leukocytosis, afebrile. Patient has incontinence, no urine output recorded. Per nurse patient diuresing well otherwise. No signs of overload on exam. MRSA negative. 48 blood culture negative. Sputum culture no growth. ? Continue CEFTRIAXONE (03/21 to [present]) ? Continue AZITHROMYCIN (03/21 to 03/25) ? Continue TAMIFLU (03/21 to 03/25) ? Continue LASIX 40 mg PO daily DCed ? Strict MARIA ESTHER's, fluid restriction 1500 cc daily ? Sputum culture, negative Prerenal AARON, Improved In settings of CHF exacerbation. Admission CR 1.5 around baseline. Continues fluctuating between 1.2 and 1.5, likely as a result of change in fluid status and urine output. GFR around 40?50s. ? Renally dose meds, avoid overdiuresis and NEPHROTOXINS ? Change LASIX to orally as above ? Daily CMP Asymptomatic complicated UTI BL renal calculi Overflow incontinence UA positive for turbid urine, 1+ protein, 2+ blood, leukocyte esterase, RBC 118, WBC 79 with rare bacteria, atrophic kidneys with renal cortical thinning and moderate bilateral renal parenchymal eschar formation, extensive bilateral renal calculi including large staghorn calculus right kidney involving calyces and right renal pelvis, no significant hydronephrosis ? ANTIBIOTICS as above ? Pending urine culture, currently negative. ? Recommended outpatient urology follow-up Chronic anemia, likely iron deficiency Hgb around 10?11. No sign of active bleed. Workup indicated low iron storage, borderline low B12 and normal folate. ? On iron supplement ? Recommended outpatient follow-up, consider starting iron once infection resolves Peripheral neuropathy ? Continued home GABAPENTIN 300 mg TID AURA versus OHS HCO3 35.1. Baby habitus high risk for AURA versus OHS ? Continue BiPAP at night ? Recommended sleep study outpatient Abdominal aortic aneurism CT abd/ pel: Infrarenal abdominal aortic aneurysm transverse measurement 6.3 x 5.9 cm compared to 6.2 x 5.[address] abdomen from June 05, 2023. ? Continue blood pressure control. ? Recommended outpatient follow-up with vascular surgery Afib, likely paroxysmal CAD, HTN, HLD Currently rate controlled. BP within normal limits, HR in 70s. ? Continued home ELIQUIS 2.5 mg BID ? Continue ATORVASTATIN 10 mg daily ? Continue LISINOPRIL 20 mg daily Health maintenance Diet: Cardiac, fluid restriction 1500 cc GI prophylaxis: Not indicated DVT prophylaxis: ELIQUIS Antibiotics: CEFTRIAXONE CODE STATUS: Full code Disposition: Pending improvement in mental status The case was discussed with my attending MD Jhony Bernard MD PGY2 Internal Medicine Attending Provider Attestation/Addendum I have examined the patient, reviewed labs and imaging findings, discussed the case with the resident(s), and reviewed entered orders. I agree with the plan of care as outlined in this note, with these additional summaries/recommendations: Patient seen at bedside. Patient was planned for discharge today although unfortunately patient became agitated overnight and was given haloperidol plus Seroquel. Patient seen at bedside this morning and noted to be somnolent. Likely patient became agitated secondary to delirium. Continue non-Pharm measures to prevent worsening delirium with bright light during the days and limit noise plus light at nighttime. s/p Tamiflu for influenza B. Continue antibiotics for superimposed bacterial pneumonia most likely secondary to gram- negative rods. Patient continues to require minimal oxygen on 2 L nasal cannula. AARON now resolved.. Patient has extensive bilateral renal calculi and will need close outpatient follow-up with urology. Abdominal aortic aneurysm noted and patient will need close outpatient follow-up with vascular surgery/cardiology for surgical intervention. Continue home Eliquis, atorvastatin, lisinopril for CAD/hypertension/hyperlipidemia. Noted to have worsening metabolic alkalosis and given acetazolamide x 1. Repeat hematology and chemistry panel in AM. Dr. Vitale
--- NOTE | 2024-03-26 16:34 | PC.NURSE ---
Patient had an episode where he woke up, was trying to get out of bed, appeared to be having hallucinations, sweating, full body tremors, shortness of breath with RR in the 30s and audible wheezing, HR in 130s and Sp02 76%. 02 increased to 4L NC and patient returned to the 90s promptly. Patient became less agitated with easier breathing but was still appearing to be hallucinating talking about the football game in [place]. Patient did not respond to anything being asked in any meaningful way. Patient HR returned to normal. Patient continues to pinch his eyes close with tremors. RR now 22, shallow with wheezing. Sp02 96% on 2L NC with HR of 80. Dr Heart made aware of event.
[2024-03-26] MEDS: POT PHOS 15 mMol in NS 250 ML 15 MMOL/250 ML BAG 62.5 MMOL IV ×2 (16:48→21:36)
--- NOTE | 2024-03-26 18:00 | PC.NURSE ---
MD made aware pt has not awaken to eat or drink today.
[2024-03-26] MEDS: APIXABAN 2.5 MG TABLET PO (21:40)
[2024-03-26] MEDS: ATORVASTATIN CALCIUM 10 MG TABLET PO (21:41)
[2024-03-26] MEDS: GABAPENTIN 300 MG CAPSULE PO (21:42)
[2024-03-27] VITALS (8 sets, daily range): BP systolic 121–131; BP diastolic 69–83; PULSE 63–110; RESP 12–24; TEMP 36.4–36.7; O2SAT 93–99; BMI 39.3
[2024-03-27] MEDS: ALBUTEROL/IPRATROPIUM (Duoneb) RT SOL 3 ML NEBU INH ×2 (01:13→07:02)
[2024-03-27 06:34] LABS: Basophils % (Auto) 0 % (0-2.5); Eosinophils # (Auto) 0.1 Thou/mm3 (0.0-0.5); Eosinophils % (Auto) 1 % (0-10); Hematocrit 37.3 % (41.0-53.0); Hemoglobin 11.3 g/dL (13.5-16.0); Immature Granulocytes % (Auto) 1 % (0-0); Immature Granulocytes Auto 0.05 Thou/mm3 (0.00-0.00); Lymphocytes # (Auto) 0.7 Thou/mm3 (1.0-4.8); Lymphocytes % (Auto) 10 % (10-50); Mean Corpuscular HGB Conc 30.3 g/dl (31.0-37.0); Mean Corpuscular Hemoglobin 29.4 pg (25.0-35.0); Mean Corpuscular Volume 97 fL (80-100); Monocytes # (Auto) 0.5 Thou/mm3 (0.0-0.8); Monocytes % (Auto) 7 % (0-12); Neutrophils # (Auto) 5.8 Thou/mm3 (1.8-7.7); Neutrophils % (Auto) 81 % (37-80); Nucleated Red Blood Cell % 0 /100 WBC (0); Platelet Count 245 Thou/mm3 (140-440); RDW Standard Deviation 55.9 fL (35.1-43.9); Red Blood Count 3.84 Miln/mm3 (4.50-5.90); White Blood Count 7.1 Thou/mm3 (3.8-10.6)
[2024-03-27 07:16] LABS: Alanine Aminotransferase 39 U/L (10-49); Albumin/Globulin Ratio 1.4 (1.2-2.2); Alkaline Phosphatase 64 U/L (46-116); Anion Gap 8 (7-16); Aspartate Amino Transferase 39 U/L (0-34); BUN/Creatinine Ratio 19 Ratio (12-20); Bilirubin,Total 0.5 mg/dL (0.3-1.2); Blood Urea Nitrogen 26 mg/dL (9-23); Calcium 9.5 mg/dL (8.3-10.6); Calcium (Corrected) 9.5 mg/dL (8.5-10.1); Carbon Dioxide 35.4 mMol/L (20.0-31.0); Chloride 102 mMol/L (98-107); Creatinine (Component) 1.4 mg/dL (0.6-1.3); Globulin 2.9 gm/dL (2.3-3.5); Glucose 109 mg/dL (74-106); Magnesium 2.3 mg/dL (1.6-2.6); Osmolality,Calculated 294 (275-295); Phosphorous 3.8 mg/dL (2.4-5.1); Potassium 3.7 mMol/L (3.4-5.1); Sodium 145 mMol/L (136-145); Total Protein 6.9 gm/dL (5.7-8.2); eGFR 52 See Note
[2024-03-27] MEDS: VENLAFAXINE XR 37.5 MG CAPCR PO (08:10)
[2024-03-27] MEDS: FERROUS SULF 325 MG TABLET PO (08:10)
[2024-03-27] MEDS: APIXABAN 2.5 MG TABLET PO (08:10)
[2024-03-27] MEDS: cefTRIAXone/D5w 1gm IV premix 50 ML IV (08:10)
[2024-03-27] MEDS: Lisinopril 2.5 MG TABLET 10 MG PO (08:10)
--- NOTE | 2024-03-27 12:25 | PC.SS ---
SS spoke with HECTOR Jackson, confirmed time at 3pm SS received call from Nick Pena, confirmed has information and continue to plan for transportation time of 3pm SS spoke with Nick Hubbard, provided information for pt and set up time at 3pm SS LM with Nick SS spoke with Vel Lara going over medicare SS spoke with Vel Lara, next of Kin, discussed discharge options for transportation, pt able to pay using [employer] SS spoke with HECTOR Jackson, confirmed unable to transport pt
--- NOTE | 2024-03-27 13:06 | PC.NURSE ---
Gave report to Cynthia at [facility]
[2024-03-27] MEDS: GABAPENTIN 300 MG CAPSULE PO (13:14)
[2024-03-27] MEDS: HYDROcodone/APAP 5/325 TABLET 1 TAB PO (13:37)
--- NOTE | 2024-03-27 16:10 | ESDS_ITS ---
Planned Discharge Date 03/27/24 DS: Providers Provider Date of admission: 03/20/24 16:55 Primary care physician: Janet Limon MD Admitting Provider: Sami Olea DO Attending Provider on Admission: Benjamin iVtale MD Consults: 03/20/24 19:05 Referral Wound Care Urgent Comment: 03/21/24 02:18 Referral Registered Dietitian Routine Comment: 03/22/24 14:34 Consult to Cardiology Routine Comment: Consulting Provider: Janet Limon 03/22/24 15:10 Referral Physical Therapy Urgent Comment: Physician Instructions: Attending Provider on DC: Jhony Heart MD Discharging Provider: Jhony Heart MD DS: Diagnosis Problem List Completed Was Problem List Reviewed/Reconciled?: Yes Hospital Course Hospital Course Hospital course: This is a 73-year-old male with significant past medical history of A-fib on Eliquis, hyperlipidemia, coronary artery disease s/p stent placement and cardiac bypass grafting, history of DVT, possible CHF, morbid obesity, recurrent UTIs with urinary overflow incontinence and bed bound presented with [facility] facility with chief complaint of SOB, generalized weakness and back pain x 2-3 days. The patient received and was admitted to telemetry unit for further management of acute hypoxic respiratory failure secondary to influenza B pneumonia and CHF exacerbation. Continued on LASIX ANTIMICROBIAL therapy. Echocardiogram done showing EF 60-65% with normal LV size/function. PATIENT INSTRUCTIONS: Please follow-up with your PCP and buhr mill operator Dr. Limon within 1 week of discharge. Please request PCP for referral to vascular surgeon milind for abdominal aortic aneurism repair Follow up outpatient with urology for renal stones and with lead warehouse associate for sleep study You have been started on ferrous sulfate tablet 325 mg every other day We have decreased the dose of Lasix to 20 mg daily. Please repeat BMP in 7 days -Continue taking all your other medications as prescribed -Recommended to return back to emergency department if your symptoms persist or does not improve. ADMISSION DIAGNOSES: #Acute metabolic encephalopathy #Contraction alkalosis #Respiratory acidosis Asymptomatic complicated UTI BL renal calculi Overflow incontinence Chronic anemia, likely iron deficiency Peripheral neuropathy AURA versus OHS Abdominal aortic aneurism Afib, likely paroxysmal CAD, HTN, HLD Incidental Findings: * Atrophic kidneys with renal cortical thinning and moderate bilateral renal parenchymal scar formation * Extensive bilateral renal calculi including large staghorn calculus right kidneyinvolving calyces and right renal pelvis * Infrarenal abdominal aortic aneurysm transverse measurement 6.3 x 5.9 cmcompared to 6.2 x [address] abdomen study June 05, 2023 * Recommended PCP follow-up The patient's management plan was discussed with my attending physician MD Jhony Bernard MD, PGY2 Time Spent with Patient Time attestation: Total time spent providing and/or coordinating discharge services: Greater than 35 minutes Exam Vital Signs Temp Pulse Resp BP Pulse Ox O2 Del Method O2 Flow Rate 98.1 F 105 H 20 123/80 98 Nasal Cannula 2 03/27/24 12:00 03/27/24 12:50 03/27/24 12:50 03/27/24 12:00 03/27/24 12:50 03/27/24 12:00 03/27/24 12:50 Narrative Exam GENERAL: Obese adult seen resting comfortably in hospital bed, no acute distress VITALS: All vitals were reviewed and the pulse ox is 97% on 1L NC HEENT: Normocephalic, atraumatic. Pupils are equal and reactive. Oral mucosa is moist. NECK: Supple, nontender, no JVD CHEST: Symmetrical, atraumatic and with equal expansion ,Nontender on palpation CARDIOVASCULAR: Heart regular rhythm & rate. S1/S2. no murmur or gallop rub or extra beats. LUNGS: Decreased breath sounds on left upper field, no laboring tachypnea or wheezing. No intercostal subcostal retraction. No rales and no rhonchi. ABDOMEN: Soft, flat, nontender to palpation, no guarding or rebound tenderness. Active and normal bowel sounds. EXTREMITIES:Moves all 4 extremities,No B/L LE edema. SKIN: Warm and dry, no jaundice or rashes noted. NEURO: Patient is difficult to arouse, unable to obtain Discharge Plan Plan Patient Disposition: Xfer Skilled Nsg Fac (SNF) Patient condition on transfer: Stable Care Plan Goals: Please follow-up with your PCP and buhr mill operator Dr. Limon within 1 week of discharge. Please request PCP for referral to vascular surgeon milind for abdominal aortic aneurism repair Follow up outpatient with urology for renal stones and with lead warehouse associate for sleep study You have been started on ferrous sulfate tablet 325 mg every other day We have decreased the dose of Lasix to 20 mg daily. Please repeat BMP in 7 days -Continue taking all your other medications as prescribed -Recommended to return back to emergency department if your symptoms persist or does not improve. Prescriptions/Referrals Prescriptions/Med Rec: New furosemide [Lasix] 20 mg tablet 20 mg PO QAM 30 Days Qty: 30 0RF ferrous sulfate 325 mg (65 mg iron) tablet 325 mg PO Q OTHER DAY Qty: 15 3RF Continued venlafaxine [Effexor XR] 75 mg Capsule,Extended Release 24hr 75 mg PO QDAY hydrocodone-acetaminophen 5-325 mg Tablet 1 tab PO Q6H PRN (Reason: Pain, Moderate) Eliquis 2.5 mg Tablet 2.5 mg PO BID gabapentin 300 mg capsule 300 mg PO TID pravastatin 40 mg tablet 40 mg PO QDAY Discontinued furosemide 40 mg tablet 40 mg PO QDAY Referrals: Janet Limon MD [Primary Care Provider] - Patient/Caregiver Discharge Instructions Discharge Activity: as per physical therapy Education Materials: [facility] Endovascular Repair, ED Influenza (Adult) Print Language: Maori Stand Alone Forms: Angie Award Info., Patient Portal Info Letter Discharge Order Discharge Orders: Discharge (Routine); Ordered 03/27/24 Ordered By: Jhony Heart Quality Discharge Quality Measures VTE prophylaxis Attestestation MD Attestation I have examined the patient, reviewed labs and imaging findings, discussed the case with the resident(s), and reviewed entered orders. I agree with the plan of care as outlined in this note. Dr. Vitale
--- NOTE | 2024-03-28 15:33 | PC.SS ---
SS was reviewing chart ensure all notes entered from previous day
== END 2024-03-27 15:19 | disposition skilled nursing facility (03) | DRG 871 ==
LOC: SERX 12:07 → SERHOLD 17:43 → S3NX 22:22
PROVIDERS: Nurse Practitioner Family; Student in an Organized Health Care Education/Training Program; Admitting Provider Student in an Organized Health Care Education/Training Program; Emergency Provider Emergency Medicine; PCP Internal Medicine Cardiovascular Disease; Visit Provider Student in an Organized Health Care Education/Training Program
DX: A41.9 Sepsis, unspecified organism (principal); G93.41 Metabolic encephalopathy; I50.33 Acute on chronic diastolic (congestive) heart failure; J10.01 Influenza due to other identified influenza virus with the same other identified influenza virus pneumonia; J96.01 Acute respiratory failure with hypoxia; J15.69 Pneumonia due to other Gram-negative bacteria; N39.0 Urinary tract infection, site not specified; I13.0 Hypertensive heart and chronic kidney disease with heart failure and stage 1 through stage 4 chronic kidney disease, or unspecified chronic kidney disease; E66.2 Morbid (severe) obesity with alveolar hypoventilation; Z95.5 Presence of coronary angioplasty implant and graft; Z86.718 Personal history of other venous thrombosis and embolism; Z79.01 Long term (current) use of anticoagulants; E78.5 Hyperlipidemia, unspecified; N39.490 Overflow incontinence; Z99.81 Dependence on supplemental oxygen; N20.0 Calculus of kidney; I48.0 Paroxysmal atrial fibrillation; I25.10 Atherosclerotic heart disease of native coronary artery without angina pectoris; G62.9 Polyneuropathy, unspecified; D50.9 Iron deficiency anemia, unspecified; N18.31 Chronic kidney disease, stage 3a; Z68.39 Body mass index [BMI] 39.0-39.9, adult; I71.43 Infrarenal abdominal aortic aneurysm, without rupture
CPT/HCPCS: 36415; 36600; 71045; 74018; 74176; 80053; 80061; 81001; 82140; 82607; 82746; 82803; 83540; 83550; 83605; 83735; 83880; 84100; 84145; 84439; 84443; 84481; 84484; 85025; 87040; 87081; 87086; 87205; 87400; 87811; 93005; 93225; 93306; 94640; 96361; 96365; 96375; 97162; 99285; A9270; J0696; J1120; J1630; J1940; J7030; J7999

== ENCOUNTER → 2024-06-02 | Outpatient (CLI) | payer MEDICARE, SELFPAY ==
--- NOTE | 2024-06-02 10:47 | XR_ITS ---
Examination: CTA abdominal aorta iliofemoral runoff. 2-D sagittal coronal reconstructions. 3-D reconstructions, vascular Exam date and time: June 02, 2024 1117 hours INDICATIONS: Bilateral leg swelling and pain 3 months Technique: Multiple CTA images of the abdominal aorta iliofemoral runoff arterial vessels, 2.0 mm slice thickness, post intravenous administration 80 cc [id number] 2-D sagittal coronal reconstructions. 3-D reconstructions, vascular 3-D postprocessing, including vascular maximum intensity projection images, 3-D volume rendering Low dose protocols were performed. One or more of the following dose reduction techniques were used; automated exposure control, adjustment of the mA and/or KV according to patient size, use of iterative reconstruction technique. Findings: Mild left pleural disease Atelectasis left base Liver is mildly irregular in contour Distended gallbladder No pancreatic or adrenal mass Bilateral opacification Achilles seen which may be contrast No bowel obstruction Colonic diverticulosis No prostatomegaly Bladder intact Infrarenal abdominal aortic aneurysm, AP dimension 6.6 cm mediolateral dimension 6.1 cm, aneurysm extends into the right common iliac artery, maximum AP dimension right common iliac artery 30 mm Heavy calcification external iliac arteries Right common femoral artery intact Heavy calcification distal right superficial femoral artery Significant calcification right popliteal artery Anterior posterior tibial arteries on the right do fill to the ankle Left common femoral artery intact No significant stenoses left superficial femoral artery or popliteal artery Left anterior tibial posterior tibial arteries do fill of the ankle Significant edema surrounding the lower legs IMPRESSION: Infrarenal abdominal aortic aneurysm, AP dimension 6.6 cm mediolateral dimension 6.1 cm, aneurysm extends into the right common iliac artery, AP dimension right common iliac artery 30 mm.
== END | disposition home or self-care (01) ==
PROVIDERS: Referring Provider Surgery Vascular Surgery; Visit Provider Surgery Vascular Surgery
DX: I71.43 Infrarenal abdominal aortic aneurysm, without rupture (principal); I72.3 Aneurysm of iliac artery
CPT/HCPCS: 75635; A4649; Q9967